=== PATIENT | male | born 1975 | race Caucasian/White ===

== ENCOUNTER 2023-03-11 12:51 | Emergency (ER) | payer BC, SELFPAY ==
--- NOTE | ~2023-03-11 | CT_ITS ---
EXAMINATION: CT abdomen pelvis w con INDICATION: Epigastric and periumbilical pain, diarrhea TECHNIQUE: Computed tomographic images of the abdomen and pelvis were obtained after the administrati on of 100 cc of Omnipaque 350 intravenous contrast. The dose-length product (DLP) was 530.49 mGy-cm. Automated exposure control and iterative reconstruction technique were employed. COMPARISON: None available FINDINGS: Minimal dependent atelectasis is present in the lung bases. The heart size is normal. There are surgical changes in the stomach. There is mild wall thickening of the gastric antrum. There is a questionable small ulcer of the gastric antrum. There is a 4 mm cyst of the right hepatic lobe. The spleen, pancreas, gallbladder, and adrenal glands are normal. The kidneys are unremarkable. No pathol ogically enlarged abdominal or pelvic lymph nodes are identified. No free intraperitoneal gas or evid ence of bowel obstruction. IMPRESSION: 1. Wall thickening of the gastric antrum with questionable small associated ulcer. Reviewed, dictated and finalized at location L. IMPRESSION: 1. Wall thickening of the gastric antrum with questionable small associated ulc er.
[2023-03-11 12:54] VITALS: BP 145/76; PULSE 78; RESP 16; TEMP 36.6; O2SAT 100
[2023-03-11 13:34] LABS: Basophils Percent Auto 0.4 % (0.2-1.2); Eosinophils Percent Auto 0.1 % (0-4.4); Hematocrit 40.3 % (42.0-52.0); Hemoglobin 13.7 g/dL (14.0-18.0); Immature Granulocyte Absolute 0.09 K/mm3 (0.00-0.031); Immature Granulocyte Percent A 0.9 % (0-0.5); Lymphocytes Percent Auto 12.2 % (18.3-44.2); Mean Corpuscular Hemoglobin 30.7 pg (26-34); Mean Corpuscular Volume 90.4 fl (80-100); Mean Platelet Volume 8.4 fl (7.4-10.4); Monocytes Absolute Auto 0.6 K/mm3 (0.1-0.6); Monocytes Percent Auto 6.1 % (2.6-8.5); Neutrophils Absolute Auto 7.9 K/mm3 (1.3-6.7); Neutrophils Percent Auto 80.3 % (45.5-73.1); Platelet Count Result 198 k/mm3 (150-375); Red Blood Count 4.46 M/mm3 (4.6-6.20); Red Cell Distribution Width 12.9 % (11.5-14.5); White Blood Count 9.8 K/mm3 (4.5-10.0)
[2023-03-11 13:41] LABS: Appearance Urine Clear (Clear); Bacteria Urine None Seen /hpf; Bilirubin Urine Negative (Negative); Blood Urine Negative (Negative); Color Urine Dark Yellow (Yellow); Glucose Urine UA Negative (Negative); Ketones Urine 1+ mg/dL (Negative); Leukocyte Esterase Ur Negative LEU/UL (Negative); Nitrate Urine Negative (Negative); Non Pathogenic Casts 0-2; Protein Urine Trace mg/dL (Negative); RBC Urine 0-2 /hpf (0-2); Specific Grav Ur 1.034 (1.001-1.035); Squamous Epithelial Cell Urine None seen /hpf (Few); Urobilinogen Urine 0.2 mg/dL (<2.0); WBC Urine 0-5 /hpf
[2023-03-11 13:42] LABS: Add Urine Microscopic? YES
[2023-03-11 13:46] VITALS: BP 136/79; O2SAT 100
[2023-03-11 13:49] LABS: Alanine Aminotransferase 21 U/L (6-50); Albumin Level 4.1 g/dL (3.5-5.1); Alkaline Phosphatase 56 U/L (38-126); Anion Gap 7 mmol/L (8-16); Aspartate Amino Transferase 25 U/L (17-59); Bilirubin,Total 0.6 mg/dL (0.2-1.3); Blood Urea Nitrogen 19 mg/dL (9-20); Calcium 8.9 mg/dL (8.4-10.2); Carbon Dioxide 26 mmol/L (22-30); Chloride 104 mmol/L (98-107); Estimated CRCL calculation 109 ml/min; Estimated Glomerular Filt Rate > 60; Glucose 93 mg/dL (65-110); Lipase 108 U/L (23-300); Potassium 3.8 mmol/L (3.4-5.0); Sodium 137 mmol/L (137-145)
[2023-03-11 14:01] VITALS: BP 132/79; O2SAT 100
--- NOTE | 2023-03-11 14:04 | ED.GENADULT ---
HPI - General Adult General Chief complaint: Nausea/Vomiting/Diarrhea Stated complaint: INT FEVERS,N/V/D Time Seen by Provider: 03/11/23 13:36 Source: patient Mode of arrival: ambulatory Limitations: no limitations History of Present Illness HPI narrative: This is a 47-year-old male who presents to the ED with chief complaint of N/V/D for the past 10 days. Patient reports that he initially was having quite a bit of nausea and vomiting but the vomiting is since resolved. Over the last several days he is having increasing episodes of diarrhea. Reports abdominal cramping only when the diarrhea comes on. Abdominal pain is relieved after bowel movements. Denies fevers, chills, syncope, chest pain, shortness of breath, cough. Denies any GI bleeding symptoms. Related Data Home Medications Medication Instructions Recorded Confirmed docusate sodium 100 mg capsule 100 mg PO DAILY 04/09/21 03/10/23 (Colace) multivitamin 1 tablet PO DAILY 04/09/21 03/10/23 ascorbic acid (vitamin C) 1,000 mg 1 g PO DAILY 10/01/21 03/10/23 tablet calcium carbonate 600 mg calcium 1,200 mg PO DAILY 10/01/21 03/10/23 (1,500 mg) tablet (Calcium) vitamin B complex (B 1 tablet PO DAILY 10/01/21 03/10/23 Complex-Vitamin B12 tablet) Allergies Allergy/AdvReac Type Severity Reaction Status Date / Time No Known Allergies Allergy Mild Verified 03/10/23 10:29 Review of Systems Review of Systems: All systems as dictated in HPI [facility] Past Medical History Medical History Dyslipidemia Essential (primary) hypertension resolved after bariatric surgery( sleeve gastrectomy) and weight loss Family history of prostate cancer Intermittent low back pain Surgical History Surgical History H/O hernia repair (~1977) congenital inguinal hernia History of sleeve gastrectomy (~02/2021) 03/21/21 Social History Social History Smoking status: Never smoker Second hand tobacco smoke exposure: No Alcohol intake: former Substance use: never Substance use type: does not use Lack of Transportation: No Lack of Food: Never True Current Housing: I Have Housing Concerned About Future Housing: No Difficulty Paying Gas/Electric Bills: No Difficulty Paying for Meds: No Currently Unemployed: No Education: Associate Degree Difficulty w/ Childcare or Family Care: No Living arrangements: with family Occupation/Education: occupation Gender identity (if verbalized by the patient): Male Agree to blood products: Yes Exam Narrative: GENERAL: Well-appearing, well-nourished, and in no acute distress. HEAD: Normocephalic, atraumatic. EYES: PERRLA and EOMI. ENT: Nares clear, no rhinorrhea or epistaxis. Mucous membranes moist. Oropharynx without tonsillar hypertrophy exudate or other lesions. NECK: Supple. No adenopathy or masses. CHEST: No respiratory distress. Clear to auscultation. No wheezes rales or rhonchi HEART: Regular rate and rhythm. No murmur heard. Normal peripheral pulses. ABDOMEN: Mild periumbilical/epigastric tenderness. Soft, otherwise nontender, nondistended, normal active bowel sounds. MSK: Normal range of motion. No edema. SKIN: Warm, dry, no rash. NEURO: Alert and oriented x3. No focal deficits. PSYCH: Normal mood and affect. Course Vital Signs Vital signs: Vital Signs Temperature 97.9 F 03/11/23 12:54 Pulse Rate 78 03/11/23 12:54 Respiratory Rate 16 03/11/23 12:54 Blood Pressure 145/76 H 03/11/23 12:54 Pulse Oximetry 100 03/11/23 12:54 Temperature 97.9 F 03/11/23 12:54 Pulse Rate 78 03/11/23 12:54 Respiratory Rate 16 03/11/23 12:54 Blood Pressure 132/79 03/11/23 14:01 Pulse Oximetry 100 03/11/23 14:01 Medical Decision Making MDM Narrative Medical decision making narrati
[2023-03-11 15:15] LABS: Influenza A QL RT-PCR Negative (Negative); Influenza B QL RT-PCR Negative (Negative); RSV RNA, RT-PCR Negative (Negative); SARS-CoV-2 RNA PCR Negative (Negative)
== END 2023-03-11 15:46 | disposition home or self-care (01) ==
PROVIDERS: Emergency Medicine; Emergency Provider Physician Assistant; PCP Family Medicine
DX: K52.9 Noninfective gastroenteritis and colitis, unspecified (principal); Z20.822 Contact with and (suspected) exposure to COVID-19; E78.5 Hyperlipidemia, unspecified; Z98.84 Bariatric surgery status
CPT/HCPCS: 36415; 74177; 80053; 81001; 83690; 85025; 87637; 99284; Q9967

== ENCOUNTER 2023-04-30 02:27 | Day surgery (SDC) | payer BC, SELFPAY ==
[2023-04-19 08:45] VITALS: BMI 26.3
--- NOTE | 2023-04-28 10:26 | SUR.PREOP ---
Patient called regarding upcoming procedure. Reviewed preop instructions, appointment times, and procedure prep.
[2023-04-30 11:43] VITALS: BP 121/72; PULSE 66; RESP 20; TEMP 36.3; O2SAT 100; BMI 25.6
[2023-04-30] MEDS: LACTATED RINGERS 1,000 ML 150 ML IV CONT (11:58)
--- NOTE | 2023-04-30 12:18 | WPDANESEPPF ---
Anes - Initial Pre Proc Eval Procedure: Operation Date: 04/30/23 13:00 Proposed Procedures p Esophagogastroduodenoscopy & Screening Colonoscopy - Leon Huff MD Date/Time: 04/30/23 12:18 Surgeon: Leon Huff MD Pre Op Diagnosis: Gastric Ulcer,Neoplasm screening Patient Data Age: 47 Gender: M Height: 1.91 m Weight: 93 kg Last Vital Signs Temp 97.3 F L 04/30/23 11:43 Pulse 66 04/30/23 11:43 Resp 20 04/30/23 11:43 BP 121/72 04/30/23 11:43 Pulse Ox 100 04/30/23 11:43 O2 Del Method Room Air 04/30/23 11:43 Allergies Allergy/AdvReac Type Severity Reaction Status Date / Time No Known Allergies Allergy Mild Verified 04/30/23 11:43 Home Medications Medication Instructions Recorded Confirmed Type docusate sodium 100 mg capsule 100 mg PO DAILY 04/09/21 04/30/23 History (Colace) multivitamin 1 tablet PO DAILY 04/09/21 04/30/23 History ascorbic acid (vitamin C) 1,000 mg 1 g PO DAILY 10/01/21 04/30/23 History tablet calcium carbonate 600 mg calcium 1,200 mg PO DAILY 10/01/21 04/30/23 History (1,500 mg) tablet (Calcium) vitamin B complex (B 1 tablet PO DAILY 10/01/21 04/30/23 History Complex-Vitamin B12 tablet) omeprazole 40 mg capsule,delayed 40 mg PO DAILY #30 caps 03/11/23 04/30/23 Rx release Patient hx anesthesia problems: none Family hx anesthesia problems: none Results Review: All pre-operative results and documents have been reviewed as part of the pre-operative evaluation. [facility] Past Medical History Medical History (Updated 03/29/23 @ 15:38 by Gauri Yeh APRN) Abnormal abdominal CT scan Dyslipidemia Essential (primary) hypertension resolved after bariatric surgery( sleeve gastrectomy) and weight loss Family history of prostate cancer Gastric ulcer Intermittent low back pain Screening for colon cancer Viral gastroenteritis Surgical History Surgical History H/O hernia repair (~1977) congenital inguinal hernia History of sleeve gastrectomy (~02/2021) 03/21/21 Social History Social History Smoking status: Never smoker Second hand tobacco smoke exposure: No Alcohol intake: current Alcohol use details: 1 drink monthly Substance use: never Substance use type: does not use Lack of Transportation: No Lack of Food: Never True Current Housing: I Have Housing Concerned About Future Housing: No Difficulty Paying Gas/Electric Bills: No Difficulty Paying for Meds: No Currently Unemployed: No Education: Associate Degree Difficulty w/ Childcare or Family Care: No Living arrangements: with family Occupation/Education: occupation Gender identity (if verbalized by the patient): Male Spiritual care concerns: No Agree to blood products: Yes Anes - Eval Final PreProcedure Day of Procedure 04/30/23 12:18 Patient weight: normal Heart: regular rate and rhythm Lungs: clear to auscultation Airway: Mallampati scale class II Neurological: alert and oriented Last oral intake: >/= 8 hours ASA classification: II Emergent: no Anesthetic plan: proceed Anesthesia type and monitoring: general GIVS and standard monitoring Results Review: All pre-operative results and documents have been reviewed as part of the pre-operative evaluation. Informed Consent: The patient's anesthetic plan and its attendant risks and benefits were discussed with the patient/family/POA. Questions were solicited and answers provided to the satisfaction of the patient/family/POA.
--- NOTE | 2023-04-30 12:35 | PM.HPGS ---
History of Present Illness History of Present Illness Consent: Risks, benefits, and alternatives have been discussed and questions answered. Patient agrees to proceed with procedure. Chief complaint: Gastric Ulcer,Neoplasm screening Narrative: Ruben Bond is a 47 year old male here for first screening colonoscopy, also EGD. He has history of sleeve gastrectomy 02/2021 and lost over 100 lbs and inguinal hernia repair.? Had EGD prior to gastric sleeve surgery and was normal per patient. He presented to [facility] ER few weeks ago with vomiting, diarrhea, and fevers.? he had a CT scan of the abdomen and pelvis that showed wall thickening of the gastric antrum with questionable small associated ulcer.? treated with ppi and now asymptomatic.? Review of Systems Constitutional: Constitutional: Denies headache(s) and Denies weakness Eyes: Eyes: Denies blurry vision ENT: Reports Normal hearing present, Denies headache(s) and Denies neck pain Cardiovascular: Cardiovascular: Denies chest pain and Denies dyspnea Respiratory: Respiratory: Denies dyspnea Gastrointestinal: Gastrointestinal: Reports no additional gastrointestinal complaints Genitourinary: Genitourinary: Denies dysuria Musculoskeletal: Musculoskeletal: Denies neck pain Integumentary/Breasts: Skin/Breast: Denies dry skin Neurologic: Reports Normal hearing present, Denies headache(s) and Denies weakness Psychiatric: Psychiatric: Denies anxiety Endocrine: Endocrine: Denies change in body appearance Hematologic/Lymphatic: Hematologic/Lymphatic: Denies easy bleeding Allergic/Immunologic: Allergic/Immunologic: Denies urticaria PMFSH Past Medical History Medical History (Updated 03/29/23 @ 15:38 by Gauri Yeh, [employer]) Abnormal abdominal CT scan Dyslipidemia Essential (primary) hypertension resolved after bariatric surgery( sleeve gastrectomy) and weight loss Family history of prostate cancer Gastric ulcer Intermittent low back pain Screening for colon cancer Viral gastroenteritis Surgical History Surgical History H/O hernia repair (~1977) congenital inguinal hernia History of sleeve gastrectomy (~02/2021) 03/21/21 Social History Social History Smoking status: Never smoker Second hand tobacco smoke exposure: No Alcohol intake: current Alcohol use details: 1 drink monthly Substance use: never Substance use type: does not use Lack of Transportation: No Lack of Food: Never True Current Housing: I Have Housing Concerned About Future Housing: No Difficulty Paying Gas/Electric Bills: No Difficulty Paying for Meds: No Currently Unemployed: No Education: Associate Degree Difficulty w/ Childcare or Family Care: No Living arrangements: with family Occupation/Education: occupation Gender identity (if verbalized by the patient): Male Spiritual care concerns: No Agree to blood products: Yes Meds Home Medications and Allergies Home Medications Medication Instructions Recorded Confirmed Type docusate sodium 100 mg capsule 100 mg PO DAILY 04/09/21 04/30/23 History (Colace) multivitamin 1 tablet PO DAILY 04/09/21 04/30/23 History ascorbic acid (vitamin C) 1,000 mg 1 g PO DAILY 10/01/21 04/30/23 History tablet calcium carbonate 600 mg calcium 1,200 mg PO DAILY 10/01/21 04/30/23 History (1,500 mg) tablet (Calcium) vitamin B complex (B 1 tablet PO DAILY 10/01/21 04/30/23 History Complex-Vitamin B12 tablet) omeprazole 40 mg capsule,delayed 40 mg PO DAILY #30 caps 03/11/23 04/30/23 Rx release Allergies Allergy/AdvReac Type Severity Reaction Status Date / Time No Known Allergies Allergy Mild Verified 04/30/23 11:43 Vital Signs Vital Signs - 24 hr 04/30/23 11:43 Temperature 97.3 F L Pulse Rate 66 Respiratory Rate 20 Blood Pressure 121/72 Pulse Oximetry 100
--- NOTE | 2023-04-30 12:45 | SUR.OPER ---
EGD start 1239 end 1243, Colonoscopy start 124
[2023-04-30 13:03] VITALS: BP 111/75; PULSE 69; RESP 12; O2SAT 100
[2023-04-30 13:13] VITALS: BP 121/90; PULSE 60; RESP 18; O2SAT 100
[2023-04-30 13:23] VITALS: BP 120/83; PULSE 60; RESP 15; O2SAT 100
== END 2023-04-30 13:26 | disposition home or self-care (01) ==
PROVIDERS: PCP Family Medicine; Visit Provider Internal Medicine Gastroenterology
PROC: 0DJ08ZZ Inspection of Upper Intestinal Tract, Via Natural or Artificial Opening Endoscopic (ICD-10-PCS; CPT 43235; principal; 2023-04-30 13:00)
DX: Z12.11 Encounter for screening for malignant neoplasm of colon (principal); R93.5 Abnormal findings on diagnostic imaging of other abdominal regions, including retroperitoneum; Z90.3 Acquired absence of stomach [part of]; K44.9 Diaphragmatic hernia without obstruction or gangrene; E78.5 Hyperlipidemia, unspecified; I10 Essential (primary) hypertension
CPT/HCPCS: 43239; 45378; 88305; J2704; J7120

== ENCOUNTER 2024-07-22 22:11 | Emergency (ER) | payer BC, SELFPAY ==
--- NOTE | ~2024-07-22 | XR_ITS ---
EXAMINATION: XR ankle RT min 3V DATE: 07/23/2024 01:59 INDICATION: Right ankle infection. TECHNIQUE: 3 views of right ankle were obtained. COMPARISON: None. FINDINGS: Alignment is normal. No fracture. Joint spaces are normal. There is an enthesophyte of post erior aspect of calcaneal tuberosity. Ankle soft tissue swelling is noted. IMPRESSION: 1. No fracture. Reviewed, dictated and finalized at location A. CLERK IMPRESSION: 1. No fracture.
--- OUTSIDE RECORDS SUMMARY | 2024-07-22 22:13 | XMS_ITS | Referral Summary ---
Author Organization [facility] Address [address] [place] [address] Phone Care Team Providers Care Computer Programmer Name Role Phone Miscellaneous, Not In File Primary Care Provider Unavailable Zeb Garcia MD Unavailable [phone] Allergies No known active allergies Medications hydroCHLOROthia zide (HYDRODIURIL) 25 mg tablet 1 Active albuterol HFA (ProAir HFA) 90 mcg/actuation inhalerIndicati ons:Acute viral bronchitis Inhale 2 puffs every 4 (four) hours as needed for wheezing or shortness of breath 8.5 g 1 Active Active Problems No known active problems Social History Tobacco Use Types Packs/Day Years Used Date Smoking Tobacco: Never Personal Safety Answer Date Recorded Getting School Help Needed Not on file 08/13 Sex and Gender Information Value Date Recorded Sex Assigned at Not on file Legal Sex Male 12:02 PM [employer] Gender Identity Not on file Sexual Orientation Not on file Last Filed Vital Signs Vital Sign Reading Time Taken Comments Blood Pressure 132/84 11/04/2020 9:35 AM CDT Pulse 102 11/04/2020 9:35 AM CDT Temperature 36.2 C (97.1 F) 11/04/2020 9:35 AM CDT Respiratory Rate 16 11/04/2020 9:35 AM CDT Oxygen Saturation 96% 11/04/2020 9:35 AM CDT Inhaled Oxygen Concentration - - Weight 155.1 kg (342 lb) 11/04/2020 9:35 AM CDT Height 190.5 cm (6' 3 ) 11/04/2020 9:35 AM CDT Body Mass Index 42.75 11/04/2020 9:35 AM CDT Plan of Treatment Not on file Insurance [employer] Care Teams Computer Programmer Relationship Specialty Start Date End Date Miscellaneous, Not In File PCP - General 07/02/23 Zeb Garcia MD Family Practice 07/02/23
--- OUTSIDE RECORDS SUMMARY | 2024-07-22 22:13 | XMS_ITS ---
Author Organization [facility] Address [address] [facility] [address] [place] [address] Care Team Providers Care Foxing Painter Name Role Phone Fede Pena DO Unavailable [phone] Encounters Encounter Location Date Provider Diagnosis [facility] [address] [facility] [address] [place] [address] 02/09/2024 Fede Pena Vitamin deficiency, unspecified E56.9 ; Other specified personal risk factors, not elsewhere classified Z91.89 ; S/P bariatric surgery Z98.84 and Postoperative intestinal malabsorption K91.2 Assessments Encounter Date Diagnosis (ICD Code) Assessment Notes Treatment Notes Treatment Clinical Notes Section Notes 02/09/2024 Vitamin deficiency, unspecified (ICD-10 - E56.9) 02/09/2024 Other specified personal risk factors, not elsewhere classified (ICD-10 - Z91.89) 02/09/2024 S/P bariatric surgery (ICD-10 - Z98.84) 02/09/2024 Postoperative intestinal malabsorption (ICD-10 - K91.2) Plan Of Treatment Pending Test Test Name Order Date IRON, TIBC AND FERRITIN PANEL (5616) 03/2024 COMPREHENSIVE METABOLIC PANEL (54055) CBC (H/H, RBC, INDICES, WBC, PLT) (1759) 02/09/2024 HEMOGLOBIN A1c (496) 02/09/2024 VITAMIN B12/FOLATE, SERUM PANEL (7065) 0 02/09/2024 TSH (899) 02/09/2024 VITAMIN D,25-OH,TOTAL,IA (90922) 024 ZINC (945) 02/09/2024 VITAMIN B1 (THIAMINE), SERUM/PLASMA, LC/ MS/MS (87337) 02/09/2024 Next Appt Details Provider Name:Fede hansen, 01/10/2025 01:15:00 PM, [address], [address], Progress Notes * MICHAEL FUNGDOB:1975 (48 yo Other)Acc No.[id number]:02/09/2024 Patient: MICHAEL YOUSSEF :1975 A ge:48 Y S ex:Unknown Address:[address] [place] [address] [place], [place], [place] [address] Subjective: * Chief Complaints: * * Medical History: * Surgical History: * Hospitalization/Major Diagno stic Procedure: * Medications: Objective: * Vitals: Past Vitals:* 01/12/2024 Wt:205, BMI:25.62, BP:120/76 * Physical Examination: Assessment: * Assessment: 1. V itamin deficiency, unspecified - E56.9 2 . O ther specified personal risk factors, not elsewhere classified - Z91.89 3 . S /P bariatric surgery - Z98.84 4 . P ostoperative intestinal malabsorption - K91.2 Plan: * Treatment: 2. O ther specified personal risk factors, not elsewhere classified L AB: IRON, TIBC AND FERRITIN PANEL (5616) L AB: COMPREHENSIVE METABOLIC PANEL (24380) L AB: CBC (H/H, RBC, INDICES, WBC, PLT) (1759) L AB: HEMOGLOBIN A1c (496) L AB: VITAMIN B12/FOLATE, SERUM PANEL (7065) L AB: TSH (899) L AB: VITAMIN D,25-OH,TOTAL,IA (07475) L AB: ZINC (945) L AB: VITAMIN B1 (THIAMINE), SERUM/PLASMA, LC/MS/MS (06733) 3. S /P bariatric surgery L AB: IRON, TIBC AND FERRITIN PANEL (5616) L AB: COMPREHENSIVE METABOLIC PANEL (13650) L AB: CBC (H/H, RBC, INDICES, WBC, PLT) (1759) L AB: HEMOGLOBIN A1c (496) L AB: VITAMIN B12/FOLATE, SERUM PANEL (7065) L AB: TSH (899) L AB: VITAMIN D,25-OH,TOTAL,IA (75876) L AB: ZINC (945) L AB: VITAMIN B1 (THIAMINE), SERUM/PLASMA, LC/MS/MS (01959) 4. P ostoperative intestinal malabsorption L AB: IRON, TIBC AND FERRITIN PANEL (5616) L AB: COMPREHENSIVE METABOLIC PANEL (70595) L AB: CBC (H/H, RBC, INDICES, WBC, PLT) (1759) L AB: HEMOGLOBIN A1c (496) L AB: VITAMIN B12/FOLATE, SERUM PANEL (7065) L AB: TSH (899) L AB: VITAMIN D,25-OH,TOTAL,IA (80367) L AB: ZINC (945) L AB: VITAMIN B1 (THIAMINE), SERUM/PLASMA, LC/MS/MS (78604) * Procedure Codes: * true * Date: Generated for Frieda abreu/Brian/Chrisitting on: 0 07/22/2024 10:13 PM PROFILE SAW SETUP OPERATOR
--- OUTSIDE RECORDS SUMMARY | 2024-07-22 22:13 | XMS_ITS | Clinical Summary ---
Author Organization [facility] Address [address] [place] [address] Phone Care Team Providers Care Reinforcing Rod Layer Name Role Phone Unavailable Primary Care Provider Unavailabl e Allergies No known active allergies Medications multivitamin (DAILY-DEBORAH) tablet Take 1 Tablet by mouth daily. Active ascorbic acid, vitamin C, (VITAMIN C) 1,000 mg Tablet Take 1,000 mg by mouth daily. Active cyanocobalamin 1,000 mcg Tablet Take 1,000 mcg by mouth daily. Active VITAMIN B COMPLEX ORAL Take by mouth. Active triamcinolone acetonide (KENALOG) 0.5 % Cream 02/26/2022 Active ergocalciferol, vitamin D2, (VITAMIN D ORAL) Take by mouth. Active Active Problems Problem Noted Date Diagnosed Date H/o ELISEO (obstructive sleep apnea) 09/24/2022 S/P laparoscopic sleeve gastrectomy 09/24/2022 Gastric reflux 09/24/2022 H/o Hypertension 02/13/2021 Resolved Problems Problem Noted Date Diagnosed Date Resolved Date Morbid obesity with body mas s index of 40.0-49.9 03/21/2021 05/29/2021 Immunizations Immunization Administration Dates Next Due (VeriTainer)(12 YR UP) COVID-19 VACCINE - EMERGENCY USE AUTHORIZATION, MRNA, [id number](PF) 30 MCG/0.3 ML IM SUSP 09/04/2020,08/16/2020 Social History Tobacco Use Types Packs/Day Years Used Date Smoking Tobacco: Never Smokeless Tobacco: Never Tobacco Cessation:Counseling Given: Not Answered Alcohol Use Standard Drinks/Week Comments Yes 0 (1 standard drink = 0.6 oz pur e alcohol) rarely Sex and Gender Information Value Date Recorded Sex Assigned at Not on file Legal Sex Male 3:35 PM CDT Gender Identity Not on file Sexual Orientation Not on file Last Filed Vital Signs Vital Sign Reading Time Taken Comments Blood Pressure 124/74 03/26/2022 3:50 PM CDT Pulse 74 09/18/2021 3:11 PM CDT Temperature 37.4 C (99.3 F) 03/22/2021 4:57 PM CDT Respiratory Rate 14 03/22/2021 4:57 PM CDT Oxygen Saturation 94% 03/22/2021 4:57 PM CDT Inhaled Oxygen Concentration - - Weight 96.7 kg (213 lb 3.2 oz) 09/24/2022 2:10 P M CDT Height 190.5 cm (6' 3 ) 09/24/2022 2:10 PM CDT Body Mass Index 26.65 09/24/2022 2:10 PM CDT Plan of Treatment Health Maintenance Due Date Last Done Comments DTAP/TDAP/TD VACCINES (1 - Tdap) 1996 HEPATITIS B VACCINES (1 of 3 - 19+ 3-dose series) 1996 COLORECTAL SCREENING 2022 Colorectal Cancer Screening 2022 FIT-DNA Q 3 years 2022 FIT/FOBT Q 1 year 2022 Flex Sig/CT Colonography Q 5 years 2022 INFLUENZA VACCINE (#1) 2023 03/31/2021 COVID-19 Vaccine (3 - 2023-2 5 season) 2024 09/04/2020, 08/16/2020 HPV VACCINES Aged Out No longer eligi ble based on patient's age to complete this topic PNEUMOCOCCAL VACCINE 0-64 YEARS Aged Out No longer eligible b ased on patient's age to complete this topic Medical Devices Implanted Type Area Disability Specialist Device Identifier Shelf Expiration Date Model / Serial / Lot Hemostat Surg Snow 2x4in 2081 - [id number] Implanted:Qt y: 1 on 03/21/2021 by Fede Pena DO at [facility] Hemostatic N/A: Abdomen [employer] [id number] 11/27/2022 208 / / [id number] Insurance BS BLUE ACCESS CHOICE RX [employer] Commercial RX [employer] (INTERNAL) [facility] Plans Advance Directives For more information, please contact: [phone] * Full Code (Latest Code Status on File) Date Activated Date Inactivated Comments 03/21/2021 5:56 PM 03/22/2021 8:39 PM * Full Code Date Activated Date Inactivated Comments 03/21/2021 1:59 PM 03/21/2021 5:56 PM * Full Code Date Activated Date Inactivated Comments 03/21/2021 11:44 AM 03/21/2021 1:59 PM
--- OUTSIDE RECORDS SUMMARY | 2024-07-22 22:13 | XMS_ITS ---
Author Organization [facility] Address [address] [place] [address] Care Team Providers Care Development Architect Name Role Phone Fede Pena DO Unavailable [phone] Results Component Value Reference Range Notes IRON, TIBC AND FERRITIN PANE L (5616) Reviewed date:03/13/2024 10:55:27 AM Interpretation: Performing Lab:[facility] Andresexa10101 [address] Rivera[address] Fany Carreon MD Notes/Report: NON-FASTING; NON-FASTING; NON-FASTING; NON-FASTING; NON-FAST FASTING:NO AN UPDATE OR CORRECTION HAS BEEN MADE TO NAME,SEX FASTING: NO IRON, TOTAL 94 50-180 mcg/dL IRON BINDING CAPACITY 323 250-425 mcg/dL (azucena c) % SATURATION 29 20-48 % (calc) FERRITIN 23 38-380 ng/mL COMPREHENSIVE METABOLIC PANE L (59369) Reviewed date:03/08/2024 11:46:10 AM Interpretation: Performing Lab:Mike SERRANOexa10101 Fifi RiveraaKS[address] Fany Carreon MD Notes/Report: NON-FASTING; NON-FASTING; NON-FASTING; NON-FASTING; NON-FAST FASTING:NO AN UPDATE OR CORRECTION HAS BEEN MADE TO NAME,SEX FASTING: NO GLUCOSE 90 65-139 mg/dL Non-fasting reference interval UREA NITROGEN (BUN) 17 7-25 mg/dL CREATININE 0.93 0.60-1.29 mg/dL EGFR 103 > OR = 60 mL/min/1.73m2 BUN/CREATININE RATIO SEE NOTE: 6-22 (calc) Not Reported: BUN and Creatinine are within reference range. SODIUM 140 135-146 mmol/L POTASSIUM 4.1 3.5-5.3 mmol/L CHLORIDE 105 98-110 mmol/L CARBON DIOXIDE 29 20-32 mmol/L CALCIUM 9.5 8.6-10.3 mg/dL PROTEIN, TOTAL 6.1 6.1-8.1 g/dL ALBUMIN 4.2 3.6-5.1 g/dL GLOBULIN 1.9 1.9-3.7 g/dL (calc) ALBUMIN/GLOBULIN RATIO 2.2 1.0-2.5 (calc) BILIRUBIN, TOTAL 0.5 0.2-1.2 mg/dL ALKALINE PHOSPHATASE 47 36-130 U/L AST 20 10-40 U/L ALT 17 9-46 U/L CBC (H/H, RBC, INDICES, WBC, PLT) (1759) Reviewed date:03/08/2024 11:46:10 AM Interpretation: Performing Lab:[facility]-Ejmbyo40657 Fifi RiveraaKS[address] Fany Carreon MD Notes/Report: NON-FASTING; NON-FASTING; NON-FASTING; NON-FASTING; NON-FAST FASTING:NO AN UPDATE OR CORRECTION HAS BEEN MADE TO NAME,SEX FASTING: NO WHITE BLOOD CELL COUNT 4.7 3.8-10.8 Thousand/ uL RED BLOOD CELL COUNT 4.42 4.20-5.80 Million/uL HEMOGLOBIN 14.2 13.2-17.1 g/dL HEMATOCRIT 41.9 38.5-50.0 % MCV 94.8 80.0-100.0 fL MCH 32.1 27.0-33.0 pg MCHC 33.9 32.0-36.0 g/dL RDW 11.6 11.0-15.0 % PLATELET COUNT 173 140-400 Thousand/uL MPV 9.7 7.5-12.5 fL HEMOGLOBIN A1c (496) Reviewed date:03/08/2024 11:46:10 AM Interpretation: Performing Lab:[facility] IildolxQD[address] Fany Carreon Notes/Report: NON-FASTING; NON-FASTING; NON-FASTING; NON-FASTING; NON-FAST FASTING:NO AN UPDATE OR CORRECTION HAS BEEN MADE TO NAME,SEX FASTING: NO HEMOGLOBIN A1c 5.2 <5.7 % of total Hgb For the purpose of screening for the presence of diabetes: <5.7% Consistent with the absence of diabetes 5.7-6.4% Consistent with increased risk for diabetes (prediabetes) > or =6.5% Consistent with diabetes This assay result is consistent with a decreased risk of diabetes. Currently, no consensus exists regarding use of hemoglobin A1c for diagnosis of diabetes in children. According to [place] Diabetes Association (ADA) guidelines, hemoglobin A1c <7.0% represents optimal control in non- diabetic patients. Different metrics may apply to specific patient populations. Standards of Medical Care in Diabetes(ADA). This test was performed on the Asiya vineet c503 platform. Effective 08/16/23, a change in test platforms from the [place] Otolaryngology Rep to the Asiya vineet c503 may have shifted HbA1c results compared to historical results. Based on laboratory validation testing conducted at [facility] the Asiya platform relative to the [place] platform had an average increase in HbA1c value of < or = 0.3%. This difference is within accepted variability established by the National Glycohemoglobin Standardization Program. Note that not all individuals will have had a shift in their results and direct comparisons between historical and current results for testing conducted on different platforms is not recommended. VITAMIN B12/FOLATE, SERUM PA JOSEPH (7065) Reviewed date:03/08/2024 11:46:10 AM Interpretation: Performing Lab:[facility] Reza-Zdeoro81386 [address], WmrwgkVR[address] Fany Carreon MD Notes/Report: NON-FASTING; NON-FASTING; NON-FASTING; NON-FASTING; NON-FAST FASTING:NO AN UPDATE OR CORRECTION HAS BEEN MADE TO NAME,SEX FASTING: NO VITAMIN B12 492 469-0302 pg/mL FOLATE, SERUM >24.0 Reference Range Low: <3.4 Borderline: 3.4-5.4 Normal: >5.4 TSH (899) Reviewed date:03/08/2024 11:46:10 AM Interpretation: Performing Lab:[facility]-Bqhfer66722 [address], MjouyhTO[address] Fany Carreon MD Notes/Report: NON-FASTING; NON-FASTING; NON-FASTING; NON-FASTING; NON-FAST FASTING:NO AN UPDATE OR CORRECTION HAS BEEN MADE TO NAME,SEX FASTING: NO TSH 1.08 0.40-4.50 mIU/L VITAMIN D,25-OH,TOTAL,IA (17 306) Reviewed date:03/08/2024 11:46:10 AM Interpretation: Performing Lab:[facility]-Pmryiq22506 Yordy [facility], LuzrovUG[address] Fany Carreon MD Notes/Report: NON-FASTING; NON-FASTING; NON-FASTING; NON-FASTING; NON-FAST FASTING:NO AN UPDATE OR CORRECTION HAS BEEN MADE TO NAME,SEX FASTING: NO VITAMIN D,25-OH,TOTAL,IA 47 30-100 ng/mL Vitamin D Status 25-OH Vitamin D: Deficiency: <20 ng/mL Insufficiency: 20 - 29 ng/mL Optimal: > or = 30 ng/mL For 25-OH Vitamin D testing on patients on D2-supplementation and patients for whom quantitation of D2 and D3 fractions is required, the QuestAssureD(TM) 25-OH VIT D, (D2,D3), LC/MS/MS is recommended: order code 76830 (patients >2yrs). See Note 1 Note 1 For additional information, please refer to http://education.bigclix.com/faq/HUQ660 (This link is being provided for informational/ educational purposes only.) ZINC (945) Reviewed date:03/08/2024 11:46:10 AM Interpretation: Performing Lab:Mike MARCOS-Armando Lnjw9459 [facility], Armando BrownTgcgWG[address] Alok Charles Notes/Report: NON-FASTING; NON-FASTING; NON-FASTING; NON-FASTING; NON-FAST FASTING:NO AN UPDATE OR CORRECTION HAS BEEN MADE TO NAME,SEX FASTING: NO ZINC 74 60-130 mcg/dL This test was developed and its analytical performance characteristics have been determined by [facility]. It has not been cleared or approved by the FDA. This assay has been validated pursuant to the CLIA regulations and is used for clinical purposes. VITAMIN B1 (THIAMINE), SERUM /PLASMA, LC/MS/MS (98007) Reviewed date:03/13/2024 10:55:37 AM Interpretation: Performing Lab:[facility], [facility]-Ok[address]jekl[address] [address], [address], JugsptwjupRW[address] Sterling Estrada MD,PhD Notes/Report: NON-FASTING; NON-FASTING; NON-FASTING; NON-FASTING; NON-FAST FASTING:NO AN UPDATE OR CORRECTION HAS BEEN MADE TO NAME,SEX FASTING: NO VITAMIN B1 (THIAMINE), SERUM/PLASMA, LC/MS/MS 102 8-30 nmol/L (Note) Vitamin supplementation within 24 hours prior to blood draw may affect the accuracy of the results. This test was developed and its analytical performance characteristics have been determined by [facility]. It has not been cleared or approved by FDA. This assay has been validated pursuant to the CLIA regulations and is used for clinical purposes. [facility] med fusion [address] [address],[address] [facility] [address] Sterling Estrada MD, PhD Encounters Encounter Location Date Provider Diagnosis [facility] [address] [place] [address] 02/09/2024 Fede Pena Vitamin deficiency, unspecified E56.9 [...] malabsorption (ICD-10 - K91.2) Plan Of Treatment Next Appt Details Provider Name:Fede Cisneros Luke hansen, 01/10/2025 01:15:00 PM, [address] , [address], [place], [address], Progress Notes * DONNA FUNGB:1975 (48 yo Other)Acc No.[id number]:02/09/2024 Patient: MICHAEL YOUSSEF :1975 A ge:48 Y S ex:Unknown Address: [address], [facility] [address] Subjective: * Chief Complaints: * * Medical [...] PANEL (5616) L AB: COMPREHENSIVE METABOLIC PANEL (62461) L AB: CBC (H/H, RBC, INDICES, WBC, PLT) (1759) L AB: HEMOGLOBIN A1c (496) L AB: VITAMIN B12/FOLATE, SERUM PANEL (7065) L AB: TSH (899) L AB: VITAMIN D,25-OH,TOTAL,IA (43976) L AB: ZINC (945) L AB: VITAMIN B1 (THIAMINE), SERUM/PLASMA, LC/MS/MS (02740) 3. S /P bariatric surgery L AB: IRON, TIBC AND FERRITIN PANEL (5616) L AB: COMPREHENSIVE METABOLIC PANEL (26021) L AB: CBC (H/H, RBC, INDICES, WBC, PLT) (1759) L AB: HEMOGLOBIN A1c (496) L AB: VITAMIN B12/FOLATE, SERUM PANEL (7065) L AB: TSH (899) L AB: VITAMIN D,25-OH,TOTAL,IA (16705) L AB: ZINC (945) L AB: VITAMIN B1 (THIAMINE), SERUM/PLASMA, LC/MS/MS (73266) 4. P ostoperative intestinal malabsorption L AB: IRON, TIBC AND FERRITIN PANEL (5616) L AB: COMPREHENSIVE METABOLIC PANEL (06964) L AB: CBC (H/H, RBC, INDICES, WBC, PLT) (1759) L AB: HEMOGLOBIN A1c (496) L AB: VITAMIN B12/FOLATE, SERUM PANEL (7065) L AB: TSH (899) L AB: VITAMIN D,25-OH,TOTAL,IA (28947) L AB: ZINC (945) L AB: VITAMIN B1 (THIAMINE), SERUM/PLASMA, LC/MS/MS (47395) * Procedure Codes: * true * Date: Generated for Frieda abreu/Brian/Veronica on: 0 07/22/2024 10:13 PM VEHICLE SERVICE ATTENDANT
--- OUTSIDE RECORDS SUMMARY | 2024-07-22 22:13 | XMS_ITS ---
Author Organization [facility] Address [address] [facility] [address] [place] [address] Care Team Providers Care Orthotic/Prosthetic Practitioner Name Role Phone Fede Pena DO Unavailable [phone] REASON FOR VISIT Lab results Encounters Encounter Location Date Provider Diagnosis [facility] [address] [place] [address] 02/15/2024 Fede Pena Plan Of Treatment Next Appt Details Provider Name:Fede hansen, 01/10/2025 01:15:00 PM, [address], [place], [address], Progress Notes * MICHAEL FUNGDOB:1975 (48 yo Other)Acc No.[id number]:02/15/2024 Patient: MICHAEL YOUSSEF :1975 A ge:48 Y S ex:Unknown Address:[address] [place], [address] * true * Date: Generated for Brookei ng/Fasumayag/eTransmitting on: 0 07/22/2024 10:13 PM ROCKET ASSEMBLY OPERATOR
--- OUTSIDE RECORDS SUMMARY | 2024-07-22 22:13 | XMS_ITS | Clinical Summary ---
Author Organization [facility] Address [address] [place] [address] Phone Care Team Providers Care Candy Dipper Hand Name Role Phone Miscellaneous, Not In File Primary Care Provider Unavailable Zeb Garcia MD Unavailable Allergies No known active allergies Medications hydroCHLOROthia zide (HYDRODIURIL) 25 mg tablet 1 Active albuterol HFA (ProAir HFA) 90 mcg/actuation inhalerIndicati ons:Acute viral bronchitis Inhale 2 puffs every 4 (four) hours as needed for wheezing or shortness of breath 8.5 g 1 Active Active Problems No known active problems Surgical History Surgery Date Site/Laterality Comments NO PAST SURGERIES Medical History Medical History Date Comments Hypertension Family History Medical History Relation Name Comments Diabetes Mother Heart disease Mother Relation Name Status Comments Mother Social History Tobacco Use Types Packs/Day Years Used Date Smoking Tobacco: Never Personal Safety Answer Date Recorded Getting School Help Needed Not on file 08/13 Sex and Gender Information Value Date Recorded Sex Assigned at Not on file 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 Gender Identity Not on file Sexual Orientation Not on file Obstetrics History Last Filed Vital Signs Vital Sign Reading [...] 11/04/2020 9:35 AM CDT Plan of Treatment Health Maintenance Due Date Last Done Comments Colon Cancer Screening-Colonoscopy 1975 Depression Screening 1975 Hepatitis C Screening 1975 DTaP/Tdap/Td Vaccine (1 - Tdap) 1988 Hepatitis B Screening 08/26/1995 Regular Well Visit/Exam 18-64 08/26/1995 Influenza Vaccine (#1) 2024 03/08/2020 HPV Vaccines Aged Out No longer eligi ble based on patient's age to complete this topic Pneumococcal vaccine <65 Aged Out No longer eligible based on patient's age to complete this topic Insurance [email or web address] [address] Care Teams Candy Dipper Hand Relationship Specialty Start Date End Date Miscellaneous, Not In File PCP - General 07/02/23 Zeb Garcia MD Family Practice 07/02/23
--- OUTSIDE RECORDS SUMMARY | 2024-07-22 22:13 | XMS_ITS | Patient Health Record ---
Author Organization [facility] Loss Address [address] [place] [address] Care Team Providers Care Stabilizing Machine Operator Name Role Phone Fede Pena DO Unavailable [phone] Migration, Provider Unavailable Unavailable Allergies No Known Allergies Results Component Value Reference Range Notes IRON, TIBC AND FERRITIN PANE L (5616) Reviewed date:03/13/2024 10:55:27 AM Interpretation: Performing Lab:Mike SERRANO-Ujlxbd96452 [address] Rivera[address] Fany Carreon MD Notes/Report: NON-FASTING; NON-FASTING; NON-FASTING; NON-FASTING; NON-FAST FASTING:NO AN UPDATE OR CORRECTION HAS BEEN MADE TO NAME,SEX FASTING: NO IRON, TOTAL 94 50-180 mcg/dL IRON BINDING CAPACITY 323 250-425 mcg/dL (azucena c) % SATURATION 29 20-48 % (calc) FERRITIN 23 38-380 ng/mL COMPREHENSIVE METABOLIC PANE L (32885) Reviewed date:03/08/2024 11:46:10 AM Interpretation: Performing Lab:Mike SERRANOexa10101 Matt RiveraPvlfvpJH[address] Fany Carreon MD Notes/Report: NON-FASTING; NON-FASTING; NON-FASTING; [...] Reviewed date:03/08/2024 11:46:10 AM Interpretation: Performing Lab:[facility]-Cbkjzf45681 Fifi RiveraaKS[address] Fany Carreon MD Notes/Report: NON-FASTING; [...] Reviewed date:03/08/2024 11:46:10 AM Interpretation: Performing Lab:GARRETT [facility] Hospital[facility]hkvv[address] XhnczxzPZ[address] Fany Carreon Notes/Report: NON-FASTING; NON-FASTING; NON-FASTING; NON-FASTING; [...] diagnosis of diabetes in children. According to [place] Diabetes Association (ADA) guidelines, hemoglobin A1c <7.0% represents optimal control in non- diabetic patients. Different metrics may apply to specific patient populations. Standards of Medical Care in Diabetes(ADA). This test was performed on the Asiya vineet c503 platform. Effective 08/16/23, a change in test platforms from the [place] Personal Computer Network Engineer to the Asiya vineet c503 may have shifted HbA1c results compared to historical results. Based on laboratory validation testing conducted at [facility] [employer], the Asiya platform relative to the [place] [...] Reviewed date:03/08/2024 11:46:10 AM Interpretation: Performing Lab:Z[facility]-Unzjqh37961 [address], SqiudeQO[address] Fany Carreon MD Notes/Report: NON-FASTING; NON-FASTING; NON-FASTING; NON-FASTING; NON-FAST FASTING:NO AN UPDATE OR CORRECTION HAS BEEN MADE TO NAME,SEX FASTING: NO VITAMIN B12 705 001-1088 pg/mL FOLATE, SERUM >24.0 Reference Range Low: <3.4 Borderline: 3.4-5.4 Normal: >5.4 TSH (899) Reviewed date:03/08/2024 11:46:10 AM Interpretation: Performing Lab:[facility]-Tsuwqn37535 [address], ElokyiCI[address] Fany Carreon MD Notes/Report: NON-FASTING; NON-FASTING; NON-FASTING; NON-FASTING; NON-FAST FASTING:NO AN UPDATE OR CORRECTION HAS BEEN MADE TO NAME,SEX FASTING: NO TSH 1.08 0.40-4.50 mIU/L VITAMIN D,25-OH,TOTAL,IA (17 306) Reviewed date:03/08/2024 11:46:10 AM Interpretation: Performing Lab:Mike SERRANO [facility]-Pyntta67036 Yordy [facility], VpzglxSC[address] Fany Carreon MD Notes/Report: NON-FASTING; NON-FASTING; NON-FASTING; [...] D, (D2,D3), LC/MS/MS is recommended: order code 93131 (patients >2yrs). See Note 1 Note 1 For additional information, please refer to http://education.[employer].Bahamaslocal.com/faq/XHG939 (This link is being provided for informational/ educational purposes only.) ZINC (945) Reviewed date:03/08/2024 11:46:10 AM Interpretation: Performing Lab:Mike MARCOS-Armando Epzd7405 [facility], Armando BrownDwseQN[address] Alok Charles Notes/Report: NON-FASTING; NON-FASTING; NON-FASTING; NON-FASTING; NON-FAST FASTING:NO AN UPDATE OR CORRECTION HAS BEEN MADE TO NAME,SEX FASTING: NO ZINC 74 60-130 mcg/dL This test was developed and its analytical performance characteristics have been determined by [facility]. It has not been cleared or approved by the FDA. This assay has been validated pursuant to the CLIA regulations and is used for clinical purposes. VITAMIN B1 (THIAMINE), SERUM /PLASMA, LC/MS/MS (70816) Reviewed date:03/13/2024 10:55:37 AM Interpretation: Performing Lab:Zaira, [facility]-RxiAaanbm[address] [address], [address], SbqiukhlooGL[address] Sterling Estrada MD,PhD Notes/Report: NON-FASTING; NON-FASTING; NON-FASTING; NON-FASTING; NON-FAST FASTING:NO AN UPDATE OR CORRECTION HAS BEEN MADE TO NAME,SEX FASTING: NO VITAMIN B1 (THIAMINE), SERUM/PLASMA, LC/MS/MS 102 8-30 nmol/L (Note) Vitamin supplementation within 24 hours prior to blood draw may affect the accuracy of the results. This test was developed and its analytical performance characteristics have been determined by [facility]. It has not been cleared or approved by FDA. This assay has been validated pursuant to the CLIA regulations and is used for clinical purposes. [facility] med fusion [address] [facility] [address] [facility] [id number] Sterling Estrada MD, PhD Reason For Referral No Information Medications Medication SIG (Take, Route, Frequency, Duration) Notes Start Date End Date Status Vitamin D2 Active Triamcinolone Acetonide 0.5 % 1 application Externally Two times a Week Active Calcium Active Multivitamin - 1 tablet Orally Once a day Active Vitamin C Active Vitamin B Complex - as directed Orally Active Problems Problem Type SNOMED Code ICD Code Onset Dates Problem Status W/U Status Risk Notes Problem 696552225 Postsurgical malabsorption, not elsewhere classified (K91.2) Active confirmed Problem 303652417 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 Vital Signs Heart Rate 73 /min 01/12/2024 Temperature 97.8 degrees Fahrenheit 01/12/2024 Height-cm 190.5 cm 01/12/2024 Blood pressure diastolic 76 mm Hg 01/12/2024 Oximetry 98 % 01/12/2024 Weight-kg 92.99 kg 01/12/2024 Height 75 in 01/12/2024 Blood pressure systolic 120 mm Hg 01/12/2024 Weight 205 lbs 01/12/2024 BMI 25.62 kg/m2 01/12/2024 Encounters Encounter Location Date Provider Diagnosis [facility] [address] [place] [address] 01/12/2024 Fede Pena History of sleeve gastrectomy Z90.3 ; Postsurgical malabsorption, not elsewhere classified K91.2 ; Vitamin deficiency, unspecified E56.9 ; Other specified personal risk factors, not elsewhere classified Z91.89 ; S/P bariatric surgery Z98.84 and Acquired absence of stomach [part of] Z90.3 [facility] [address] [facility] [address] [address] 10/23/2023 Provider Migration [facility] [address] [address] 10/24/2023 Provider Migration [facility] [address] [address] 02/09/2024 Fede Pena Vitamin deficiency, unspecified E56.9 ; Other specified personal risk factors, not elsewhere classified Z91.89 ; S/P bariatric surgery Z98.84 and Postoperative intestinal malabsorption K91.2 [facility] [address] [facility] [address] [address] 02/09/2024 Fede Pena Vitamin deficiency, unspecified E56.9 ; Other specified personal risk factors, not elsewhere classified Z91.89 ; S/P bariatric surgery Z98.84 and Postoperative intestinal malabsorption K91.2 [facility] [address] [address] 02/15/2024 Fede Pena Assessments Encounter Date Diagnosis (ICD Code) Assessment Notes Treatment Notes Treatment Clinical Notes Section Notes 01/12/2024 Other specified personal risk factors, not elsewhere classified (ICD-10 - Z91.89) 01/12/2024 S/P bariatric surgery (ICD-10 - Z98.84) 01/12/2024 History of sleeve gastrectomy (ICD-10 - Z90.3) 02/09/2024 Vitamin deficiency, unspecified (ICD-10 - E56.9) 02/09/2024 Other specified personal risk factors, not elsewhere classified (ICD-10 - Z91.89) 02/09/2024 S/P bariatric surgery (ICD-10 - Z98.84) 02/09/2024 Postoperative intestinal malabsorption (ICD-10 - K91.2) 02/09/2024 Vitamin deficiency, unspecified (ICD-10 - E56.9) 02/09/2024 Other specified personal risk factors, not elsewhere classified (ICD-10 - Z91.89) 02/09/2024 S/P bariatric surgery (ICD-10 - Z98.84) 02/09/2024 Postoperative intestinal malabsorption (ICD-10 - K91.2) 01/12/2024 Vitamin deficiency, unspecified (ICD-10 - E56.9) 01/12/2024 Postsurgical malabsorption, not elsewhere classified (ICD-10 - K91.2) 01/12/2024 Acquired absence of stomach [part of] (ICD-10 - Z90.3) Plan Of Treatment Pending Test Test Name Order Date LIPID PANEL, STANDARD (7600) 01/12/2024 IRON, TIBC AND FERRITIN PANEL (5616) IRON, TIBC AND FERRITIN PANEL (5616) 03/2024 COMPREHENSIVE METABOLIC PANEL (35659) COMPREHENSIVE METABOLIC PANEL (90300) CBC (H/H, RBC, INDICES, WBC, PLT) (1759) 01/12/2024 CBC (H/H, RBC, INDICES, WBC, PLT) (1759) 02/09/2024 HEMOGLOBIN A1c (496) 02/09/2024 HEMOGLOBIN A1c (496) 01/12/2024 VITAMIN B12/FOLATE, SERUM PANEL (7065) 0 01/12/2024 VITAMIN B12/FOLATE, SERUM PANEL (7065) 0 02/09/2024 TSH (899) 02/09/2024 TSH (899) 01/12/2024 VITAMIN D,25-OH,TOTAL,IA (19789) 024 VITAMIN D,25-OH,TOTAL,IA (45949) 024 ZINC (945) 01/12/2024 ZINC (945) 02/09/2024 VITAMIN B1 (THIAMINE), SERUM/PLASMA, LC/ MS/MS (58729) 02/09/2024 VITAMIN B1 (THIAMINE), SERUM/PLASMA, LC/ MS/MS (21468) 01/12/2024 Next Appt Details Provider Name:Fede hansen, 01/10/2025 01:15:00 PM, [address] [address], [place], [address], Insurance Providers Payer Name Payer Address Payer Phone Subscriber Number Group Number Insured Name Patient Relationship to Insured Coverage Start Date Coverage End Date [employer] [address] [place] [address] [id number] MICHAEL FUNG Self - patient is the insured Medical (General) History Medical History History ICD Code obstructive sleep apnea peptic ulcer disease Asthma Hypertension Surgical History Surgery Date(Month/Year) Lap Sleeve Gastrectomy, Dr. Pena 2020
[2024-07-22 22:17] VITALS: BP 116/75; PULSE 65; RESP 17; TEMP 36.3; O2SAT 100
--- OUTSIDE RECORDS SUMMARY | 2024-07-23 01:07 | XMS_ITS | Clinical Summary ---
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
--- OUTSIDE RECORDS SUMMARY | 2024-07-23 01:07 | XMS_ITS ---
Author Organization [facility] Address [address] [facility] [address] [place] [address] Care Team Providers Care Global Human Resources Director Name Role Phone Fede Pena DO Unavailable [phone] REASON FOR VISIT Lab results Encounters Encounter Location Date Provider Diagnosis [facility] [address] [place] [address] 02/15/2024 Fede Pena Plan Of Treatment Next Appt Details Provider Name:Fede hansen, 01/10/2025 01:15:00 PM, [address], [address], [place], [address], Progress Notes * MICHAEL FUNGDOB:1975 (48 yo Other)Acc No.[id number]:02/15/2024 Patient: MICHAEL YOUSSEF :1975 A ge:48 Y S ex:Unknown Address:[address] [place], [address] * true * Date: Generated for Brookei brady/Fasumayag/eTransmitting on: 0 07/23/2024 01:07 AM DOCTOR PODIATRIC MEDICINE
--- OUTSIDE RECORDS SUMMARY | 2024-07-23 01:07 | XMS_ITS | Clinical Summary ---
Author Organization [facility] Address [address] [place] [address] Phone Care Team Providers Care Beef Pusher Name Role Phone Unavailable Primary Care Provider [...] 05/29/2021 Immunizations Immunization Administration Dates Next Due ([employer])(12 YR UP) COVID-19 VACCINE - EMERGENCY USE AUTHORIZATION, MRNA, [id number](PF) 30 MCG/0.3 ML IM SUSP 09/04/2020,08/16/2020 Social [...] this topic Medical Devices Implanted Type Area Organizational Development Manager Device Identifier Shelf Expiration Date Model / Serial / Lot Hemostat Surg Snow 2x4in 2081 - [id number] Implanted:Qt y: 1 on 03/21/2021 by Fede Pena DO at [facility] Hemostatic N/A: Abdomen J[employer]J- [employer] [id number] 11/27/2022 208 / / [id number] Insurance [place] BLUE ACCESS CHOICE RX PRIME THERAPEUTICS Commercial RX HOGAN PLANS (INTERNAL) [facility] Internal Plans Advance Directives For more information, please contact: [phone] * Full Code (Latest Code Status on File) Date Activated Date Inactivated Comments 03/21/2021 5:56 PM 03/22/2021 8:39 PM * Full Code Date Activated Date Inactivated Comments 03/21/2021 1:59 PM 03/21/2021 5:56 PM * Full Code Date Activated Date Inactivated Comments 03/21/2021 11:44 AM 03/21/2021 1:59 PM
--- OUTSIDE RECORDS SUMMARY | 2024-07-23 01:07 | XMS_ITS ---
Author Organization [facility] Address [address] [facility] [address] [place] [address] Care Team Providers Care Family Engagement Specialist Name Role Phone Fede Pena DO Unavailable [phone] Encounters Encounter Location Date Provider Diagnosis [facility] [address] [facility] [address] [place] [address] 02/09/2024 Fede Pena Vitamin deficiency, unspecified E56.9 [...] FERRITIN PANEL (5616) 03/2024 COMPREHENSIVE METABOLIC PANEL (74156) CBC (H/H, RBC, INDICES, WBC, PLT) (1759) 02/09/2024 HEMOGLOBIN A1c (496) 02/09/2024 VITAMIN B12/FOLATE, SERUM PANEL (7065) 0 02/09/2024 TSH (899) 02/09/2024 VITAMIN D,25-OH,TOTAL,IA (63929) 024 ZINC (945) 02/09/2024 VITAMIN B1 (THIAMINE), SERUM/PLASMA, LC/ MS/MS (71541) 02/09/2024 Next Appt Details Provider Name:Fede hansen, 01/10/2025 01:15:00 PM, [address], [address], Progress Notes * MICHAEL FUNGDOB:1975 (48 yo Other)Acc No.[id number]:02/09/2024 Patient: MICHAEL YOUSSEF :1975 A ge:48 Y S ex:Unknown Address:[address] [place] [address] [place], [place], [place] [address] Subjective: * Chief Complaints: * * Medical [...] PANEL (5616) L AB: COMPREHENSIVE METABOLIC PANEL (21594) L AB: CBC (H/H, RBC, INDICES, WBC, PLT) (1759) L AB: HEMOGLOBIN A1c (496) L AB: VITAMIN B12/FOLATE, SERUM PANEL (7065) L AB: TSH (899) L AB: VITAMIN D,25-OH,TOTAL,IA (27068) L AB: ZINC (945) L AB: VITAMIN B1 (THIAMINE), SERUM/PLASMA, LC/MS/MS (78188) 3. S /P bariatric surgery L AB: IRON, TIBC AND FERRITIN PANEL (5616) L AB: COMPREHENSIVE METABOLIC PANEL (21256) L AB: CBC (H/H, RBC, INDICES, WBC, PLT) (1759) L AB: HEMOGLOBIN A1c (496) L AB: VITAMIN B12/FOLATE, SERUM PANEL (7065) L AB: TSH (899) L AB: VITAMIN D,25-OH,TOTAL,IA (02872) L AB: ZINC (945) L AB: VITAMIN B1 (THIAMINE), SERUM/PLASMA, LC/MS/MS (63827) 4. P ostoperative intestinal malabsorption L AB: IRON, TIBC AND FERRITIN PANEL (5616) L AB: COMPREHENSIVE METABOLIC PANEL (61353) L AB: CBC (H/H, RBC, INDICES, WBC, PLT) (1759) L AB: HEMOGLOBIN A1c (496) L AB: VITAMIN B12/FOLATE, SERUM PANEL (7065) L AB: TSH (899) L AB: VITAMIN D,25-OH,TOTAL,IA (15371) L AB: ZINC (945) L AB: VITAMIN B1 (THIAMINE), SERUM/PLASMA, LC/MS/MS (53841) * Procedure Codes: * true * Date: Generated for Frieda abreu/Brian/Chrisitting on: 0 07/23/2024 01:07 AM MARKETING ACCOUNT EXECUTIVE
--- OUTSIDE RECORDS SUMMARY | 2024-07-23 01:07 | XMS_ITS | Referral Summary ---
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
--- NOTE | 2024-07-23 01:24 | ED.GENADULT ---
HPI - General Adult General Chief complaint: Extremity Injury, Lower Stated complaint: POSSIBLE INFECTION BILATERAL FEET Time Seen by Provider: 07/23/24 00:56 History of Present Illness HPI narrative: Patient is a 48-year-old male who presents to the emergency department this evening complaining a wound to his right ankle. Patient states that [place] the beach [place] and was wearing shoes that continued to rub against the back of his ankle causing him to have a blister there. Throughout the following few days patient started to notice that the medial aspect of his right ankle joint has become more swelling and red and today started to cause him a lot of discomfort so he decided to come to the emergency department for further evaluation. States that he has been using some Neosporin 100 peroxide at home without improvement of his symptoms. No additional symptoms or concerns at this time. Patient denies any history of diabetes. Related Data Home Medications ?Medication ?Instructions ?Recorded ?Confirmed ?Last Taken ?Type multivitamin 1 tablet PO DAILY 04/09/21 11/08/23 Unknown History ascorbic acid (vitamin C) 1,000 mg 1 g PO DAILY 10/01/21 11/08/23 Unknown History tablet calcium carbonate (Calcium 600) 1,200 mg PO DAILY 10/01/21 11/08/23 Unknown History vitamin B complex (B 1 tablet PO DAILY 10/01/21 11/08/23 Unknown History Complex-Vitamin B12 tablet) Allergies Allergy/AdvReac Type Severity Reaction Status Date / Time No Known Allergies Allergy Mild Verified 07/22/24 22:16 Review of Systems Review of Systems: All systems are reviewed and are negative unless stated otherwise in the HPI. [facility] Past Medical History Medical History Viral gastroenteritis Screening for colon cancer Gastric ulcer Abnormal abdominal CT scan Dyslipidemia Essential (primary) hypertension resolved after bariatric surgery( sleeve gastrectomy) and weight loss Intermittent low back pain Family history of prostate cancer Surgical History Surgical History History of sleeve gastrectomy (~02/2021) 03/21/21 H/O hernia repair (~1977) congenital inguinal hernia Social History Social History Smoking status: Never smoker Second hand tobacco smoke exposure: No Alcohol intake: current Alcohol use details: 1 drink monthly Substance use: never Substance use type: does not use Lack of Transportation: No Lack of Food: Never True Current Housing: I Have Housing Concerned About Future Housing: No Difficulty Paying Gas/Electric Bills: No Difficulty Paying for Meds: No Currently Unemployed: No Education: Associate Degree Difficulty w/ Childcare or Family Care: No Living arrangements: with family Occupation/Education: occupation Gender identity (if verbalized by the patient): Male Spiritual care concerns: No Agree to blood products: Yes Exam Narrative: General: Alert, awake, afebrile, in no acute distress. HEENT: PERRL, no rhinorrhea, no post nasal drip, oropharynx clear. Neck: Trachea midline, no JVD, no lymphadenopathy. Cardiovascular: Regular rate and rhythm, no murmurs, rubs or gallops, no peripheral edema. Respiratory: Clear to auscultation bilaterally, no tachypnea, no wheezing, no rhonchi, no rubs, no respiratory distress. Abdomen: Soft, nontender, nondistended, no rebound, no guarding, no peritoneal signs. Musculoskeletal: No joint swelling or deformity, normal muscle tone. Skin: Cellulitis noted to the medial aspect of the right ankle joint with erythema and tenderness to palpation. Psychiatric: Alert and oriented, normal behavior and judgment for situation. Neurological: Alert and oriented to person, place, and time. Follows all commands. No focal deficits, speech is clear and fluent. Course Vital Signs Vital signs: Vital Signs Temperature 97.3 F L 07/22/24 22:17 Pulse Rate 65 07/22/24 22:17 Respiratory Rate 17 07/22/24 22:17 Blood Pressure 116/75 07/22/24 22:17 Pulse Oximetry 100 07/22/24 22:17 Oxygen Delivery Room Air 07/22/24 22:17 Temperature 97.3 F L 07/22/24 22:17 Pulse Rate 60 07/23/24 01:30 Respiratory Rate 17 07/23/24 01:30 Blood Pressure 126/85 07/23/24 01:30 Pulse Oximetry 100 07/23/24 01:30 Oxygen Delivery Room Air 07/22/24 22:17 Medical Decision Making MDM Narrative Medical decision making narrative: The patient was evaluated by myself in the emergency department. History is obtained from patient who is an independent historian and physical exam was performed. External medical records were reviewed at this time. IV was established and pertinent tests were ordered. Patient was administered 4 mg IV morphine for pain and 4 mg IV Zofran for nausea. Laboratory results obtained revealing no acute process. Patient's inflammatory markers including CRP and ESR were both noted to be within normal limits. At this time, patient was informed of these findings at bedside. He was administered his 1st dose of antibiotic in the emergency department with 2 g of IV ceftriaxone. Patient was informed that he will be placed on an oral antibiotic to take at home for the next 7 days and patient is agreeable with this plan. Imaging studies obtained included right ankle x-ray which was independently interpreted by me revealing no acute process, which is pending final radiology interpretation. Differential diagnosis considerations include cellulitis, abscess. Comorbidities impacting this visit include none. I have evaluated and discussed social determinants of health with the patient that could potentially impact subsequent diagnosis and treatment plans. On repeat assessment of the patient, reevaluation revealed that the patient is doing well and is in no acute distress. Patient symptoms have improved since he arrived to our emergency department. Repeat vital signs were all reviewed and noted to be stable. Differential diagnosis and treatment plan were discussed with the patient at bedside. Patient agrees with discussion and after shared medical decision making agrees with discharge. All questions were answered to the patient's satisfaction. Patient will follow up with his PCP in 3-5 days. A script for cephalexin was sent to patient's pharmacy to take as prescribed. Patient was provided with strict return precautions and instructed to return to the emergency department if any new or worsening symptoms develop. The patient was discharged in stable condition. Vital Signs Vital Signs: Vital Signs Temperature 97.3 F L 07/22/24 22:17 Pulse Rate 65 07/22/24 22:17 Respiratory Rate 17 07/22/24 22:17 Blood Pressure 116/75 07/22/24 22:17 Pulse Oximetry 100 07/22/24 22:17 Oxygen Delivery Room Air 07/22/24 22:17 Temperature 97.3 F L 07/22/24 22:17 Pulse Rate 60 07/23/24 01:30 Respiratory Rate 17 07/23/24 01:30 Blood Pressure 126/85 07/23/24 01:30 Pulse Oximetry 100 07/23/24 01:30 Oxygen Delivery Room Air 07/22/24 22:17 Lab Data 07/23/24 01:24 07/23/24 01:24 Labs: Lab Results 07/23/24 Range/Units 01:24 WBC 6.0 (4.5-10.0) K/mm3 RBC 4.22 L (4.6-6.20) M/mm3 Hgb 13.1 L (14.0-18.0) g/dL Hct 38.4 L (42.0-52.0) % MCV 91.0 (80-100) fl MCH 31.0 (26-34) pg MCHC 34.1 (32-36) g/dl RDW 12.6 (11.5-14.5) % Plt Count 149 L (150-375) k/mm3 MPV 8.8 (7.4-10.4) fl Immature Gran % (Auto) 0.2 (0-0.5) % Neut % (Auto) 52.9 (45.5-73.1) % Lymph % (Auto) 30.8 (18.3-44.2) % Bates % (Auto) 9.3 H (2.6-8.5) % Eos % (Auto) 6.3 H (0-4.4) % Baso % (Auto) 0.5 (0.2-1.2) % Lymph # (Auto) 1.86 (0.9-3.2) K/mm3 Bates # (Auto) 0.6 (0.1-0.6) K/mm3 Eos # (Auto) 0.4 H (0-0.3) K/mm3 Baso # (Auto) 0.0 (0.0-0.1) K/mm3 Abs Immat Gran (auto) 0.01 (0.00-0.031) K/mm3 Absolute Neuts (auto) 3.2 (1.3-6.7) K/mm3 Absolute Nucleated RBC 0.000 (0.0-0.012) K/mm3 Nucleated RBC % 0.0 (0.0-0.2) % ESR 15 (0-20) mm/hr Sodium 140 (137-145) mmol/L Potassium 4.1 (3.4-5.0) mmol/L Chloride 103 (98-107) mmol/L Carbon Dioxide 29 (22-30) mmol/L Anion Gap 8 (4-12) mmol/L BUN 18 (9-20) mg/dL Creatinine 1.05 (0.7-1.3) mg/dL Estim Creat Clear Calc 93 ml/min Estimated GFR > 60 (59 - ) Glucose 93 (65-110) mg/dL Calcium 9.0 (8.4-10.2) mg/dL Total Bilirubin 0.4 (0.2-1.3) mg/dL AST 25 (17-59) U/L ALT 18 (6-50) U/L Alkaline Phosphatase 58 (38-126) U/L C-Reactive Protein 1.1 (<1.0) mg/dL Total Protein 7.0 (6.3-8.2) g/dL Albumin 3.9 (3.5-5.1) g/dL Discharge Plan Discharge Clinical Impression: Cellulitis of leg Patient Disposition: Home, Self-Care Condition: Improved Instructions: Antibiotic Form, Cellulitis (ED) Additional Instructions: Please take the prescribed antibiotic as instructed for your right ankle cellulitis. Return to the emergency department if your symptoms do not improve in the next 48 hours. Follow-up with your family doctor within the next 3-5 days. Patient Language: Urdu Prescriptions: New cephalexin 500 mg capsule 500 mg PO Q6H 7 Days Qty: 28 0RF No Action multivitamin Tablet 1 tablet PO DAILY vitamin B complex [B Complex-Vitamin B12] Tablet 1 tablet PO DAILY calcium carbonate [Calcium 600] 600 mg calcium (1,500 mg) tablet 1,200 mg PO DAILY ascorbic acid (vitamin C) 1,000 mg tablet 1 g PO DAILY scopolamine base 1 mg over 3 days patch 3 day 1 patch transdermal Q3D PRN (Reason: motion sickness) Qty: 4 1RF Follow-up/Referrals: Vinicio Garcia MD [Primary Care Provider] - 3 Days Time of Disposition: 02:30
[2024-07-23] MEDS: ONDANSETRON INJ 4 MG/2 ML VIAL IV PUSH (01:25)
[2024-07-23] MEDS: MORPHINE SULFATE (*CRX) 4 MG/ML INJ IV PUSH (01:25)
[2024-07-23 01:30] VITALS: BP 126/85; PULSE 60; RESP 17; O2SAT 100
[2024-07-23 01:36] LABS: Basophils Percent Auto 0.5 % (0.2-1.2); Eosinophils Absolute Auto 0.4 K/mm3 (0-0.3); Eosinophils Percent Auto 6.3 % (0-4.4); Hematocrit 38.4 % (42.0-52.0); Hemoglobin 13.1 g/dL (14.0-18.0); Immature Granulocyte Absolute 0.01 K/mm3 (0.00-0.031); Immature Granulocyte Percent A 0.2 % (0-0.5); Lymphocytes Absolute Auto 1.86 K/mm3 (0.9-3.2); Lymphocytes Percent Auto 30.8 % (18.3-44.2); Mean Corpuscular HGB Conc 34.1 g/dl (32-36); Mean Platelet Volume 8.8 fl (7.4-10.4); Monocytes Absolute Auto 0.6 K/mm3 (0.1-0.6); Monocytes Percent Auto 9.3 % (2.6-8.5); Neutrophils Absolute Auto 3.2 K/mm3 (1.3-6.7); Neutrophils Percent Auto 52.9 % (45.5-73.1); Platelet Count Result 149 k/mm3 (150-375); Red Blood Count 4.22 M/mm3 (4.6-6.20); Red Cell Distribution Width 12.6 % (11.5-14.5)
[2024-07-23 01:51] LABS: Alanine Aminotransferase 18 U/L (6-50); Albumin Level 3.9 g/dL (3.5-5.1); Alkaline Phosphatase 58 U/L (38-126); Anion Gap 8 mmol/L (4-12); Aspartate Amino Transferase 25 U/L (17-59); Bilirubin,Total 0.4 mg/dL (0.2-1.3); Blood Urea Nitrogen 18 mg/dL (9-20); Carbon Dioxide 29 mmol/L (22-30); Chloride 103 mmol/L (98-107); Estimated CRCL calculation 93 ml/min; Estimated Glomerular Filt Rate > 60; Glucose 93 mg/dL (65-110); Potassium 4.1 mmol/L (3.4-5.0); Sodium 140 mmol/L (137-145)
[2024-07-23 02:10] LABS: Erythrocyte Sedimentation Rate 15 mm/hr (0-20)
[2024-07-23 02:25] LABS: CRP 1.1 mg/dL (<1.0)
[2024-07-23] MEDS: ceFAZolin 2 GM/D5W 50 ML 2 GM/50 ML BAG IVPB (02:34)
[2024-07-23 02:41] VITALS: BP 125/81; PULSE 57; RESP 17; O2SAT 97
[2024-07-23 03:21] VITALS: BP 127/80; PULSE 60; RESP 18; O2SAT 98
== END 2024-07-23 03:22 | disposition home or self-care (01) ==
PROVIDERS: Emergency Provider Emergency Medicine; PCP Family Medicine
DX: L03.115 Cellulitis of right lower limb (principal); E78.5 Hyperlipidemia, unspecified; Z98.84 Bariatric surgery status
CPT/HCPCS: 36415; 73610; 80053; 85025; 85652; 86140; 96365; 96375; 99284; J0690; J2270; J2405

== ENCOUNTER 2024-12-06 08:54 | Outpatient (CLI) | payer BC, SELFPAY ==
--- OUTSIDE RECORDS SUMMARY | 2024-12-06 09:00 | XMS_ITS | Clinical Summary ---
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 Gender Identity Not on file Sexual Orientation [...] 9:35 AM CDT Height 190.5 cm (6' 3) 11/04/2020 9:35 AM CDT Body Mass Index 42.75 11/04/2020 9:35 AM CDT Plan of Treatment Health Maintenance Due Date Last Done Comments Colon Cancer Screening-Colonoscopy 1975 Depression Screening 1975 Hepatitis C Screening 1975 DTaP/Tdap/Td Vaccine (1 - Tdap) 1988 Hepatitis B Screening 08/26/1995 Regular Well Visit/Exam 18-64 08/26/1995 Influenza Vaccine (Season Ended) 2025 03/08/20 20 Pneumococcal vaccine <65 Aged Out No longer eligible based on patient's age to complete this topic Insurance [email or web address] [address] [place] [address] Care Teams Claims Consultant Relationship Specialty Start Date End Date Miscellaneous, Not In File PCP - General 07/02/23 Zeb Garcia MD Family Practice 07/02/23
--- OUTSIDE RECORDS SUMMARY | 2024-12-06 09:00 | XMS_ITS | Clinical Summary ---
Author Organization [facility] Address [address] [place] [address] Phone Care Team Providers Care Spool Sorter Name Role Phone Unavailable Primary Care Provider [...] 05/29/2021 Immunizations Immunization Administration Dates Next Due ([employer])(12 YR UP) COVID-19 VACCINE - EMERGENCY USE AUTHORIZATION, MRNA, [id number](PF) 30 MCG/0.3 ML IM SUSP 09/04/2020,08/16/2020 Social [...] P M CDT Height 190.5 cm (6' 3) 09/24/2022 2:10 PM CDT Body Mass Index 26.65 09/24/2022 2:10 PM CDT Plan of Treatment Health Maintenance Due Date Last Done Comments DTAP/TDAP/TD VACCINES (1 - Tdap) 1996 HEPATITIS B VACCINES (1 of 3 - 19+ 3-dose series) 1996 COLORECTAL SCREENING 2022 Colorectal Cancer Screening 2022 FIT-DNA Q 3 years 2022 FIT/FOBT Q 1 year 2022 Flex Sig/CT Colonography Q 5 years 2022 COVID-19 Vaccine ( season) 01/30/202411/2020, 08/16/2020 INFLUENZA VACCINE (#1) 2024 03/31/2021 Medical Devices Implanted Type Area Sailing Master Device Identifier Shelf Expiration Date Model / Serial / Lot Hemostat Surg Snow 2x4in 2082 - [id number] Implanted:Qt y: 1 on 03/21/2021 by Fede Pena DO at [facility] Hemostatic N/A: Abdomen [employer]- [employer] [id number] 11/27/2022 2082 / / [id number] Insurance [facility] BLUE ACCESS CHOICE RX [employer] THERAPEUT[employer] Commercial RX [employer]OG[employer] PLANS (INTERNAL) [facility] Internal Plans Advance Directives For more information, please contact: [phone] * Full Code (Latest Code Status on File) Date Activated Date Inactivated Comments 03/21/2021 5:56 PM 03/22/2021 8:39 PM * Full Code Date Activated Date Inactivated Comments 03/21/2021 1:59 PM 03/21/2021 5:56 PM * Full Code Date Activated Date Inactivated Comments 03/21/2021 11:44 AM 03/21/2021 1:59 PM
--- OUTSIDE RECORDS SUMMARY | 2024-12-06 09:00 | XMS_ITS ---
Author Organization [facility] Address [address] [place], [place] [address] Care Team Providers Care Account Receivable Associate Name Role Phone Fede Pena DO Unavailable [phone] Allergies No Known Allergies REASON FOR VISIT [...] Status Risk Notes Problem Post-surgical malabsorption (disorder) (764779628) Postsurgical malabsorption, not elsewhere classified (K91.2) Active confirmed Problem History of gastrectomy (679976932) 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) [...] [address] [place], [place] [address] 01/12/2024 Fede Pena History of sleeve gastrectomy [...] AND FERRITIN PANEL (5616) COMPREHENSIVE METABOLIC PANEL (17655) CBC (H/H, RBC, INDICES, WBC, PLT) (1759) 01/12/2024 HEMOGLOBIN A1c (496) 01/12/2024 VITAMIN B12/FOLATE, SERUM PANEL (7065) 0 01/12/2024 TSH (899) 01/12/2024 VITAMIN D,25-OH,TOTAL,IA (22627) 024 ZINC (945) 01/12/2024 VITAMIN B1 (THIAMINE), SERUM/PLASMA, LC/ MS/MS (41094) 01/12/2024 Next Appt Details Provider Name:Fede hansen, 01/10/2025 01:15:00 PM, [address], [address], [id number], Procedure Notes * Category Sub-Category Detail Notes [...] arise; and continue to follow-up with bariatric velvet cutter. There are no barriers to education today: [...] Notes * MICHAEL FUNGDOB:1975 (49 yo Other)Acc No.[id number]:01/12/2024 Patient: MICHAEL YOUSSEF Provider: Sidney Pena DO :1975 A ge:48 Y S ex:Unknown Date:01/12/2024 Address:[address] [place] [address] , [facility] Subjective: * Chief Complaints: * 1 . [...] disease, Asthma, Hypertension. * Surgical History: L anjelica Sleeve Gastrectomy, Dr. Pena 03/21/2021. * Social [...] PANEL (5616) L AB: COMPREHENSIVE METABOLIC PANEL (12554) L AB: CBC (H/H, RBC, INDICES, WBC, PLT) (1759) L AB: HEMOGLOBIN A1c (496) L AB: VITAMIN B12/FOLATE, SERUM PANEL (7065) L AB: TSH (899) L AB: VITAMIN D,25-OH,TOTAL,IA (75112) L AB: ZINC (945) L AB: VITAMIN B1 (THIAMINE), SERUM/PLASMA, LC/MS/MS (13050) 3. P ostsurgical malabsorption, not elsewhere classified L AB: LIPID PANEL, STANDARD (7600) L AB: IRON, TIBC AND FERRITIN PANEL (5616) L AB: COMPREHENSIVE METABOLIC PANEL (78061) L AB: CBC (H/H, RBC, INDICES, WBC, PLT) (1759) L AB: HEMOGLOBIN A1c (496) L AB: VITAMIN B12/FOLATE, SERUM PANEL (7065) L AB: TSH (899) L AB: VITAMIN D,25-OH,TOTAL,IA (30490) L AB: ZINC (945) L AB: VITAMIN B1 (THIAMINE), SERUM/PLASMA, LC/MS/MS (12224) 4. O ther specified personal risk factors, not elsewhere classified L AB: LIPID PANEL, STANDARD (7600) L AB: IRON, TIBC AND FERRITIN PANEL (5616) L AB: COMPREHENSIVE METABOLIC PANEL (18732) L AB: CBC (H/H, RBC, INDICES, WBC, PLT) (1759) L AB: HEMOGLOBIN A1c (496) L AB: VITAMIN B12/FOLATE, SERUM PANEL (7065) L AB: TSH (899) L AB: VITAMIN D,25-OH,TOTAL,IA (96238) L AB: ZINC (945) L AB: VITAMIN B1 (THIAMINE), SERUM/PLASMA, LC/MS/MS (67897) 5. S /P bariatric surgery L AB: LIPID PANEL, STANDARD (7600) L AB: IRON, TIBC AND FERRITIN PANEL (5616) L AB: COMPREHENSIVE METABOLIC PANEL (11077) L AB: CBC (H/H, RBC, INDICES, WBC, PLT) (1759) L AB: HEMOGLOBIN A1c (496) L AB: VITAMIN B12/FOLATE, SERUM PANEL (7065) L AB: TSH (899) L AB: VITAMIN D,25-OH,TOTAL,IA (55007) L AB: ZINC (945) L AB: VITAMIN B1 (THIAMINE), SERUM/PLASMA, LC/MS/MS (84147) * Procedures: P ost Operative Plan: Education: [...] arise; and continue to follow-up with bariatric velvet cutter. There are no barriers to education today . DISPOSITION: R eturn in 6 months for follow-up visit. Mayco greenwood also instructed to have repeat labs drawn [...] * Electronic signature of Lanre Pena DO, [id number] on 12/06/2024 at 09:00 AM CDT Sign off status: Pending * Provider: Sidney Pena DO Date: 0 01/12/2024 Generated for Frieda abreu/Brian/Veronica on: 12/06/2024 09:00 AM CDT History and Physical Notes * HPI (History [...]
--- OUTSIDE RECORDS SUMMARY | 2024-12-06 09:00 | XMS_ITS | Referral Summary ---
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
--- OUTSIDE RECORDS SUMMARY | 2024-12-06 09:00 | XMS_ITS | Patient Health Record ---
Author Organization [facility] Loss Address [address] [place], [place] [id number] Care Team Providers Care Legal Financial Specialist Name Role Phone Fede Pena DO Unavailable [phone] Allergies No Known Allergies Results Component Value Reference Range Notes VITAMIN B1 (THIAMINE), SERUM /PLASMA, LC/MS/MS (63588) Reviewed date:03/13/2024 10:55:37 AM Interpretation: Performing Lab:ZChristopher, [facility] [place] [address], [address], EfpewqjgfnPH[address] Sterling Estrada MD,PhD Notes/Report: NON-FASTING; NON-FASTING; NON-FASTING; NON-FASTING; NON-FAST FASTING:NO AN UPDATE OR CORRECTION HAS BEEN MADE TO NAME,SEX FASTING: NO VITAMIN B1 (THIAMINE), SERUM/PLASMA, LC/MS/MS 102 8-30 nmol/L (Note) Vitamin supplementation within 24 hours prior to blood draw may affect the accuracy of the results. This test was developed and its analytical performance characteristics have been determined by [facility]. It has not been cleared or approved by FDA. This assay has been validated pursuant to the CLIA regulations and is used for clinical purposes. MD [facility] [address] [facility] [address] Sterling Estrada MD, PhD ZINC (891) Reviewed date:03/08/2024 11:46:10 AM Interpretation: Performing Lab:[facility], [facility] [address], [place] Alok Charles Notes/Report: NON-FASTING; NON-FASTING; NON-FASTING; NON-FASTING; NON-FAST FASTING:NO AN UPDATE OR CORRECTION HAS BEEN MADE TO NAME,SEX FASTING: NO ZINC 74 60-130 mcg/dL This test was developed and its analytical performance characteristics have been determined by [facility]. It has not been cleared or approved by the FDA. This assay has been validated pursuant to the CLIA regulations and is used for clinical purposes. VITAMIN B12/FOLATE, SERUM PA JOSEPH (7065) Reviewed date:03/08/2024 11:46:10 AM Interpretation: Performing Lab:Mike SERRANO-Ftsxxz[address], IamdqwYM[address] Fany Carreon MD Notes/Report: NON-FASTING; NON-FASTING; NON-FASTING; NON-FASTING; NON-FAST FASTING:NO AN UPDATE OR CORRECTION HAS BEEN MADE TO NAME,SEX FASTING: NO VITAMIN B12 944 553-4236 pg/mL FOLATE, SERUM >24.0 Reference Range Low: <3.4 Borderline: 3.4-5.4 Normal: >5.4 HEMOGLOBIN A1c (496) Reviewed date:03/08/2024 11:46:10 AM Interpretation: Performing Lab:GARRETT [facility] [place] [address] Fany Carreon Notes/Report: NON-FASTING; NON-FASTING; NON-FASTING; NON-FASTING; [...] diagnosis of diabetes in children. According to [place] Diabetes Association (ADA) guidelines, hemoglobin A1c <7.0% represents optimal control in non- diabetic patients. Different metrics may apply to specific patient populations. Standards of Medical Care in Diabetes(ADA). This test was performed on the Asiya vineet c503 platform. Effective 08/16/23, a change in test platforms from the [place] Fieldwork Coordinator to the Asiya vineet c503 may have shifted HbA1c results compared to historical results. Based on laboratory validation testing conducted at [facility], the Asiya platform relative to the [place] platform had an average increase in HbA1c value of < or = 0.3%. This difference is within accepted variability established by the National Glycohemoglobin Standardization Program. Note that not all individuals will have had a shift in their results and direct comparisons between historical and current results for testing conducted on different platforms is not recommended. CBC (H/H, RBC, INDICES, WBC, PLT) (9299) Reviewed date:03/08/2024 11:46:10 AM Interpretation: Performing Lab:ZACH [facility] SolutionDioneTflmhp[address]157 [address] VsafihOV[address] Fany Carreon MD Notes/Report: NON-FASTING; NON-FASTING; NON-FASTING; [...] 173 140-400 Thousand/uL MPV 9.7 7.5-12.5 fL COMPREHENSIVE METABOLIC PANE L (53351) Reviewed date:03/08/2024 11:46:10 AM Interpretation: Performing Lab:Z[facility] Solution[facility]ioneCmyzxl72141 Matt RiveraWvjkoaDZ[address] Fany Carreon MD Notes/Report: NON-FASTING; NON-FASTING; NON-FASTING; [...] 20 10-40 U/L ALT 17 9-46 U/L IRON, TIBC AND FERRITIN PANE L (8716) Reviewed date:03/13/2024 10:55:27 AM Interpretation: Performing Lab:[facility]-Pnxzix[address], OboevkOB[address] Fany Carreon MD Notes/Report: NON-FASTING; NON-FASTING; NON-FASTING; NON-FASTING; NON-FAST FASTING:NO AN UPDATE OR CORRECTION HAS BEEN MADE TO NAME,SEX FASTING: NO IRON, TOTAL 94 50-180 mcg/dL IRON BINDING CAPACITY 323 250-425 mcg/dL (azucena c) % SATURATION 29 20-48 % (calc) FERRITIN 23 38-380 ng/mL VITAMIN D,25-OH,TOTAL,IA (17 306) Reviewed date:03/08/2024 11:46:10 AM Interpretation: Performing Lab:Z[facility] Solution[facility]ioneBwntgt94817 [address] DulcfhSK[address] Fany Carreon MD Notes/Report: NON-FASTING; NON-FASTING; NON-FASTING; [...] D, (D2,D3), LC/MS/MS is recommended: order code 15951 (patients >2yrs). See Note 1 Note 1 For additional information, please refer to http://education.InvoiceSharing/faq/YIL063 (This link is being provided for informational/ educational purposes only.) TSH (899) Reviewed date:03/08/2024 11:46:10 AM Interpretation: Performing Lab:[facility]-[id number], MmaaljHP[address] Fany Carreon MD Notes/Report: NON-FASTING; NON-FASTING; NON-FASTING; NON-FASTING; NON-FAST FASTING:NO AN UPDATE OR CORRECTION HAS BEEN MADE TO NAME,SEX FASTING: NO TSH 1.08 0.40-4.50 mIU/L Reason For Referral No Information Medications Medication [...] Status Risk Notes Problem Post-surgical malabsorption (disorder) (247079926) Postsurgical malabsorption, not elsewhere classified (K91.2) Active confirmed Problem History of gastrectomy (786509904) 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 Vital Signs Heart Rate 73 /min 01/12/2024 Temperature 97.8 degrees Fahrenheit 01/12/2024 Oximetry 98 % 01/12/2024 Blood pressure diastolic 76 mm Hg 01/12/2024 Height-cm 190.5 cm 01/12/2024 Weight-kg 92.99 kg 01/12/2024 Height 75 in 01/12/2024 Blood pressure systolic 120 mm Hg 01/12/2024 Weight 205 lbs 01/12/2024 BMI 25.62 kg/m2 01/12/2024 Encounters Encounter Location Date Provider Diagnosis [facility] [address] [place], [place] [id number] 01/12/2024 Fede Pena History of sleeve gastrectomy Z90.3 ; Postsurgical malabsorption, not elsewhere classified K91.2 ; Vitamin deficiency, unspecified E56.9 ; Other specified personal risk factors, not elsewhere classified Z91.89 ; S/P bariatric surgery Z98.84 and Acquired absence of stomach [part of] Z90.3 [facility] [address] [facility] [address] [id number] 02/09/2024 Fede Pena Vitamin deficiency, unspecified E56.9 ; Other specified personal risk factors, not elsewhere classified Z91.89 ; S/P bariatric surgery Z98.84 and Postoperative intestinal malabsorption K91.2 [facility] [address] [id number] 02/09/2024 Fede Pena Vitamin deficiency, unspecified E56.9 ; Other specified personal risk factors, not elsewhere classified Z91.89 ; S/P bariatric surgery Z98.84 and Postoperative intestinal malabsorption K91.2 [facility] [address] [id number] 02/15/2024 Fede Pena Assessments Encounter Date Diagnosis [...] FERRITIN PANEL (5616) 03/2024 COMPREHENSIVE METABOLIC PANEL (16970) COMPREHENSIVE METABOLIC PANEL (00371) CBC (H/H, RBC, INDICES, WBC, PLT) (1759) 01/12/2024 CBC (H/H, RBC, INDICES, WBC, PLT) (1759) 02/09/2024 HEMOGLOBIN A1c (496) 02/09/2024 HEMOGLOBIN A1c (496) 01/12/2024 VITAMIN B12/FOLATE, SERUM PANEL (7065) 0 01/12/2024 VITAMIN B12/FOLATE, SERUM PANEL (7065) 0 02/09/2024 TSH (899) 02/09/2024 TSH (899) 01/12/2024 VITAMIN D,25-OH,TOTAL,IA (46935) 024 VITAMIN D,25-OH,TOTAL,IA (26007) 024 ZINC (945) 01/12/2024 ZINC (945) 02/09/2024 VITAMIN B1 (THIAMINE), SERUM/PLASMA, LC/ MS/MS (27953) 02/09/2024 VITAMIN B1 (THIAMINE), SERUM/PLASMA, LC/ MS/MS (41039) 01/12/2024 Next Appt Details Provider Name:Fede hansen, 01/10/2025 01:15:00 PM, [address], [address], [id number], Insurance Providers Payer Name Payer Address Payer Phone Subscriber Number Group Number Insured Name Patient Relationship to Insured Coverage Start Date Coverage End Date [employer] [address] [place] [address] [id number] MICHAEL FUNG Self - patient is the insured Medical (General) History Medical History History ICD Code obstructive sleep apnea peptic ulcer disease Asthma Hypertension Surgical History Surgery Date(Month/Year) Lap Sleeve Gastrectomy, Dr. Pena 2020
== END 2024-12-06 08:55 | disposition home or self-care (01) ==
LOC: ANHBWCAUD 08:54
PROVIDERS: PCP Family Medicine; Visit Provider Otolaryngology
DX: H91.93 Unspecified hearing loss, bilateral (principal)
CPT/HCPCS: 92557; 92567

== ENCOUNTER 2025-04-20 16:31 | Emergency (ER) | payer OTHER, SELFPAY ==
--- OUTSIDE RECORDS SUMMARY | 2023-10-23 03:00 | XMS_ITS ---
Author Organization [facility] Address [address] [facility] [address] [place], [place] [id number] Care Team Providers Care Communications Executive Name Role Phone Fede Pena DO Unavailable [phone] Migration, Provider Unavailable Unavailable REASON FOR VISIT EMR-Brina Encounters Encounter Location Date Provider Diagnosis [facility] [address] [place], [place] [id number] 10/23/2023 Provider Migration Plan Of Treatment Next Appt Details Provider Name:Fede hansen, 01/17/2026 03:00:00 PM, [address], [address], [place], [place], [id number], Progress Notes * MICHAEL FUNGDOB:1975 (49 yo Other)Acc No.[id number]:10/23/2023 Patient: MICHAEL YOUSSEF :1975 A ge:48 Y S ex:Unknown Address:[address] [place], [address] Subjective: * Chief Complaints: * E MR-Brian * Medical History: * Surgical History: * Hospitalization/Major Diagno stic Procedure: * Medications: Objective: * Vitals: * Physical Examination: Assessment: Plan: * Treatment: * Procedure Codes: * * Date:
--- OUTSIDE RECORDS SUMMARY | 2024-01-12 03:00 | XMS_ITS ---
Author Organization [facility] Address [address] [facility] [address] [place], [place] [id number] Care Team Providers Care Gym Instructor Name Role Phone Jean DE LA CRUZ Fede Unavailable [phone] Allergies No Known Allergies REASON FOR VISIT Foaming, po 2yr10m sleeve Medications Medication SIG (Take, Route, Frequency, Duration) Notes Start Date End Date Status Vitamin B Complex - as directed Orally Active Vitamin C Active Vitamin D2 Active Multivitamin - 1 tablet Orally Once a day Active Triamcinolone Acetonide 0.5 % 1 application Externally Two times a Week Active Encounters Encounter Location Date Provider Diagnosis [facility] [address] [place], [place] [id number] 01/12/2024 Fede Pena Plan Of Treatment Next Appt Details Provider Name:Fede hansen, 01/17/2026 03:00:00 PM, [address], [address], [place], [place], [id number], Progress Notes * MICHAEL FUNGDOB:1975 (49 yo Other)Acc No.[id number]:01/12/2024 Patient: MICHAEL YOUSSEF Provider: Sidney Pena DO :1975 A ge:48 Y S ex:Unknown Date:01/12/2024 [facility] [facility] Subjective: * Chief Complaints: * 1 . Foaming, po 2yr10m sleeve. * Medical History: O bstructive sleep apnea, Peptic ulcer disease, Asthma, Hypertension. * Surgical History: L ap Sleeve Gastrectomy, Dr. Pena 03/21/2021. * Social History: M igrated Social History: M igrated Social History: Never a smoker. * Medications: T aking Vitamin B Complex - Tablet as directed Orally , Taking Vitamin C , Taking Multivitamin - Tablet 1 tablet Orally Once a day , Taking Triamcinolone Acetonide 0.5 % Cream 1 application Externally Two times a Week , Taking Vitamin D2 * Allergies: N .K.D.A. Objective: * Vitals: Assessment: Plan: * Treatment: * Billing Information: * Visit Code: * Procedure Codes: * Electronic signature of Lanre Pena DO, [id number] on 04/20/2025 at 04:36 PM RESIDENT ASSISTANT Sign off status: Pending * Provider: Sidney Pena DO Date: 0 01/12/2024 Generated for Frieda abreu/Brian/Veronica on: 06/20/2024 04:36 PM RESIDENT ASSISTANT
--- OUTSIDE RECORDS SUMMARY | 2024-01-12 07:15 | XMS_ITS ---
Author Organization [facility] Address [address] [place], [place] [address] Care Team Providers Care Denture Technician Name Role Phone Fede Pena DO Unavailable [phone] Allergies No Known Allergies REASON FOR VISIT Foaming, po 2yr10m sleeve Medications Medication SIG (Take, Route, Frequency, Duration) Notes Start Date End Date Status Vitamin D2 Active Calcium Active Multivitamin - 1 tablet Orally Once a day Active Vitamin C Active Vitamin B Complex - as directed Orally Active Triamcinolone Acetonide 0.5 % 1 application Externally Two times a Week Active Problems Problem Type SNOMED Code ICD Code Onset Dates Problem Status W/U Status Risk Notes Problem Post-surgical malabsorption (disorder) (043530146) Postsurgical malabsorption, not elsewhere classified (K91.2) Active confirmed Problem History of gastrectomy (588845570) 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 Vital Signs Temperature 97.8 degrees Fahrenheit 01/12/20 24 Blood pressure systolic 120 mm Hg 01/12/20 24 Blood pressure diastolic 76 mm Hg 024 Heart Rate 73 /min 01/12/2024 Height 75 in 01/12/2024 Weight 205 lbs 01/12/2024 BMI 25.62 kg/m2 01/12/2024 Oximetry 98 % 01/12/2024 Height-cm 190.5 cm 01/12/2024 Weight-kg 92.99 kg 01/12/2024 Encounters Encounter Location Date Provider Diagnosis [facility] [address] [place], [place] [id number] 01/12/2024 Fede Pena History of sleeve gastrectomy Z90.3 ; Postsurgical malabsorption, not elsewhere classified K91.2 ; Vitamin deficiency, unspecified E56.9 ; Other specified personal risk factors, not elsewhere classified Z91.89 ; S/P bariatric surgery Z98.84 and Acquired absence of stomach [part of] Z90.3 Assessments Encounter Date Diagnosis (ICD Code) Assessment Notes Treatment Notes Treatment Clinical Notes Section Notes 01/12/2024 History of sleeve gastrectomy (ICD-10 - Z90.3) 01/12/2024 Postsurgical malabsorption, not elsewhere classified (ICD-10 - K91.2) 01/12/2024 Vitamin deficiency, unspecified (ICD-10 - E56.9) 01/12/2024 Other specified personal risk factors, not elsewhere classified (ICD-10 - Z91.89) 01/12/2024 S/P bariatric surgery (ICD-10 - Z98.84) 01/12/2024 Acquired absence of stomach [part of] (ICD-10 - Z90.3) Plan Of Treatment Pending Test Test Name Order Date LIPID PANEL, STANDARD (7600) 01/12/2024 IRON, TIBC AND FERRITIN PANEL (5616) COMPREHENSIVE METABOLIC PANEL (54041) CBC (H/H, RBC, INDICES, WBC, PLT) (1759) 01/12/2024 HEMOGLOBIN A1c (496) 01/12/2024 VITAMIN B12/FOLATE, SERUM PANEL (7065) 0 01/12/2024 TSH (899) 01/12/2024 VITAMIN D,25-OH,TOTAL,IA (70134) 024 ZINC (945) 01/12/2024 VITAMIN B1 (THIAMINE), SERUM/PLASMA, LC/ MS/MS (95635) 01/12/2024 Next Appt Details Provider Name:Fede hansen, 01/17/2026 03:00:00 PM, [address], [address], [id number], Procedure Notes * Category Sub-Category Detail Notes Post Operative Plan Education: Emphasized e xercise and activity expectations; goal of 10,000 steps/day & 150 active min/wk. Reiterated importance of drinking at least 64 oz fluid & taking in at least 60-90g protein daily: . Patient understands the anali y postop vitamin requirements: MVI, calcium + Vit D (1,500IU), folate 100mg, and any other vitamin supplements as needed based on laboratory monitoring. Reviewed appropriate eating habits and food choices: . Reminded patient that surger y is not a magic fix for weight loss: it is hard work and requires many behavioral changes to be successful. Encouraged patient follow with their PCP regularly, especially regarding medication changes: ; to see a counselor if mental health concerns arise; and continue to follow-up with bariatric composition professor. There are no barriers to education today: . DISPOSITION: Return in: 6 months for follo w-up visit. Patient also instructed to h ave repeat labs drawn prior to next postop follow-up visit; orders placed: CBC w/diff, CMP, Vit B1, Folate, Vit B12, iron/TIBC, lipid panel, 25-Hydroxy, HbA1C, zinc. The patient is encouraged to call the clinic with any questions or concerns in the meantime. The patient demonstrates understanding and is amendable to the above outlined plan: . Progress Notes * MICHAEL FUNGDOB:1975 (49 yo Other)Acc No.[id number]:01/12/2024 Patient: MICHAEL YOUSSEF Provider: Sidney Pena DO :1975 A ge:48 Y S ex:Unknown Date:01/12/2024 Address: [address], [facility] Subjective: * Chief Complaints: * 1 . Foaming, po 2yr10m sleeve. 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 Since our last follow up he had bariatric labs drawn. > INTERVAL ISSUES/CONCERNS: n ausea,diarrhea,constipation,bloating/hiccups/increased belching P atient h as not been admitted to the hospital H as patient undergone any post-bariatric surgical operations or interventions? N o . P re-surgical Weight: 3 44 lb L ast Visit Weight: 2 13 lb T CEM'S WEIGHT: 2 05 lb T otal Weight Loss (TBW): 1 39 lb % TBW Lost: 4 0.4 > Daily fluid/water intake = 4 0-60 ounces > Protein Intake is a dequate > Physical Activity: E xercising 1-3x/week a nd walking 6 ,000 -10,000 steps/day COMORBIDITY EVALUATION : ELISEO Yes - no longer requiring CPAP at night . GERD No . Hypertension Yes , - o ff BP medications Hyperlipidemia No , Diabetes Yes , VTE Yes , Is Patient attending any support groups E ncouraged attendance . * ROS: G eneral / Constitutional: Chills d enies. F ever d enies. A llergy / Immunology: Blistering skin d enies. H EENT: Difficulty in swallowing d enies. N kimmy congestion?denies. E ndocrine: Cold intolerance d enies. E xcessive thirst d enies. R espiratory: Chest pain d enies. C ough d enies. ? C ardiovascular: Chest pain d enies. P alpitations d enies. W eakness d enies. G astrointestinal: Abdominal pain d enies. D iarrhea d enies. J aundice d enies. R ectal bleeding d enies. G enitourinary: Blood in the urine d enies. D ifficulty urinating d enies. M usculoskeletal: Limping gait d enies. W eakness d enies. B urning pain in lower legs d enies. P sychiatric: Auditory / visual hallucinations d enies. S ubstance abuse d enies. S uicidal thoughts d enies. R eview of Systems: Fever/Chills: N o. E levated HR: N o. B loating/hiccups: N o. S OB/cough/wheezing: N o. L ower extremity pain or swelling: N o.?Decreased UOP: N o. B owel function N ormal BMs without complaint. ? * Medical History: O bstructive sleep apnea, Peptic ulcer disease, Asthma, Hypertension. * Surgical History: L ap Sleeve Gastrectomy, Dr. Pena 03/21/2021. * Social History: M igrated Social History: M igrated Social History: Never a smoker. * Medications: T aking Calcium , Taking Vitamin B Complex - Tablet as directed Orally , Taking Vitamin C , Taking Multivitamin - Tablet 1 tablet Orally Once a day , Taking Triamcinolone Acetonide 0.5 % Cream 1 application Externally Two times a Week , Taking Vitamin D2 , Medication List reviewed and reconciled with the patient * Allergies: N .K.D.A. Objective: * Vitals: W t:205, Ht: 75, HT: 6'3, BMI:25.62, Oxygen sat %:98, HR:73, BP:120/76, Temp:97.8, Wt-k.99, Ht-cm: 190.5, Body Surface Area: 2.22. * Examination: P hysical Exam: General: W ell-developed a dult in no acute distress Head: A traumatic, normocephalic . Neck: S upple, trachea midline. No cervical lymphadenopathy . Chest: Unlabored breathing without respiratory distress Heart: Normal rate and regular rhythm Abdomen: Soft, non-tender, Bowel sounds normal, No masses, no organomegaly Extremities: Warm and well perfused R eviewed any recent labs with patient at visit today . Psych G ood insight, good judgement, appropriate affect . Integumentary: W arm and dry . Assessment: * Assessment: 1. H istory of sleeve gastrectomy - Z90.3 (Primary) 2 . V itamin deficiency, unspecified - E56.9 3 . P ostsurgical malabsorption, not elsewhere classified - K91.2 4 . O ther specified personal risk factors, not elsewhere classified - Z91.89 5 . S /P bariatric surgery - Z98.84 6 . A cquired absence of stomach [part of] - Z90.3 Plan: * Treatment: 2. V itamin deficiency, unspecified L AB: LIPID PANEL, STANDARD (7600) L AB: IRON, TIBC AND FERRITIN PANEL (5616) L AB: COMPREHENSIVE METABOLIC PANEL (21093) L AB: CBC (H/H, RBC, INDICES, WBC, PLT) (1759) L AB: HEMOGLOBIN A1c (496) L AB: VITAMIN B12/FOLATE, SERUM PANEL (7065) L AB: TSH (899) L AB: VITAMIN D,25-OH,TOTAL,IA (06514) L AB: ZINC (945) L AB: VITAMIN B1 (THIAMINE), SERUM/PLASMA, LC/MS/MS (20157) 3. P ostsurgical malabsorption, not elsewhere classified L AB: LIPID PANEL, STANDARD (7600) L AB: IRON, TIBC AND FERRITIN PANEL (5616) L AB: COMPREHENSIVE METABOLIC PANEL (23978) L AB: CBC (H/H, RBC, INDICES, WBC, PLT) (1759) L AB: HEMOGLOBIN A1c (496) L AB: VITAMIN B12/FOLATE, SERUM PANEL (7065) L AB: TSH (899) L AB: VITAMIN D,25-OH,TOTAL,IA (76150) L AB: ZINC (945) L AB: VITAMIN B1 (THIAMINE), SERUM/PLASMA, LC/MS/MS (66794) 4. O ther specified personal risk factors, not elsewhere classified L AB: LIPID PANEL, STANDARD (7600) L AB: IRON, TIBC AND FERRITIN PANEL (5616) L AB: COMPREHENSIVE METABOLIC PANEL (29080) L AB: CBC (H/H, RBC, INDICES, WBC, PLT) (1759) L AB: HEMOGLOBIN A1c (496) L AB: VITAMIN B12/FOLATE, SERUM PANEL (7065) L AB: TSH (899) L AB: VITAMIN D,25-OH,TOTAL,IA (32940) L AB: ZINC (945) L AB: VITAMIN B1 (THIAMINE), SERUM/PLASMA, LC/MS/MS (86826) 5. S /P bariatric surgery L AB: LIPID PANEL, STANDARD (7600) L AB: IRON, TIBC AND FERRITIN PANEL (5616) L AB: COMPREHENSIVE METABOLIC PANEL (18119) L AB: CBC (H/H, RBC, INDICES, WBC, PLT) (1759) L AB: HEMOGLOBIN A1c (496) L AB: VITAMIN B12/FOLATE, SERUM PANEL (7065) L AB: TSH (899) L AB: VITAMIN D,25-OH,TOTAL,IA (11835) L AB: ZINC (945) L AB: VITAMIN B1 (THIAMINE), SERUM/PLASMA, LC/MS/MS (21722) * Procedures: P ost Operative Plan: Education: E mphasized exercise and activity expectations; goal of 10,000 steps/day & 150 active min/wk. Reiterated importance of drinking at least 64 oz fluid & taking in at least 60-90g protein daily . P atient understands the daily postop vitamin requirements: MVI, calcium + Vit D (1,500IU), folate 100mg, and any other vitamin supplements as needed based on laboratory monitoring. Reviewed appropriate eating habits and food choices . R eminded patient that surgery is not a magic fix for weight loss: it is hard work and requires many behavioral changes to be successful. Encouraged patient follow with their PCP regularly, especially regarding medication changes ; t o see a counselor if mental health concerns arise; and continue to follow-up with bariatric composition professor. There are no barriers to education today . DISPOSITION: R eturn in 6 months for follow-up visit. P timo also instructed to have repeat labs drawn prior to next postop follow-up visit; orders placed: CBC w/diff, CMP, Vit B1, Folate, Vit B12, iron/TIBC, lipid panel, 25-Hydroxy, HbA1C, zinc. The patient is encouraged to call the clinic with any questions or concerns in the meantime. The patient demonstrates understanding and is amendable to the above outlined plan . * Billing Information: * Visit Code: * Procedure Codes: * Electronic signature of Lanre Pena DO, [id number] on 04/20/2025 at 04:36 PM CASING MATERIAL WEIGHER Sign off status: Pending * Provider: Sidney Pena DO Date: 0 01/12/2024 Generated for Frieda abreu/Brian/Chrisitting on: 1 06/20/2024 04:36 PM CASING MATERIAL WEIGHER History and Physical Notes * HPI (History of Present Illness) Category Sub-Category Detail Notes Category Not es History of Present Illness Visit: Time since surgery:: 2 Years 10 Months Surgical Procedure:: Sleeve Gastrectomy Date of Surgery:: 03/21/2021 Interval History: The patient is a: male present ing for bariatric postoperative follow-up. Since our last follow up he had bariatric labs d rawn. > INTERVAL ISSUES/CONCERNS:: nausea,diarrhea,constipation,bloating/hiccups/increased belching Patient: has not been admitted to the hospital Has patient undergone any po st-bariatric surgical operations or interventions?: No . Pre-surgical Weight:: 344 lb Last Visit Weight:: 213 lb TODAY'S WEIGHT:: 205 lb Total Weight Loss (TBW):: 139 lb %TBW Lost:: 40.4 > Daily fluid/water intake =: 40-60 ounc es > Protein Intake is: adequate > Physical Activity:: Exercising 1-3x/we ek and walkin,000 -10,000 steps/day COMORBIDITY EVALUATION : ELISEO Yes - no longer requiring CPAP a t night . GERD No . Hypertension Yes , -: off BP medications Hyperlipidemia No , Diabetes Yes , VTE Yes , Is Patient attending any support groups Encour ed attendance: . Examination Category Sub-Category Detail Notes Category Not es Physical Exam General: Well-developed: adult in no acute distress Chest: Unlabored breath ing without respiratory distress Abdomen: Soft, non-tender, Ulises wel sounds normal, No masses, no organomegaly Extremities: Warm and well perfused Reviewed any recent labs with patient at visit today: . Heart: Normal rate and regular rhythm Psych Good insight, good judgement, ap propriate affect: . Integumentary: Warm and dry: . Head: Atraumatic, normocephalic: . Neck: Supple, trachea midline. No cerv ical lymphadenopathy: .
[2025-04-20 16:36] VITALS: BP 149/92; PULSE 79; RESP 14; TEMP 37.3; O2SAT 99
--- OUTSIDE RECORDS SUMMARY | 2025-04-20 16:36 | XMS_ITS | Clinical Summary ---
Author Organization [facility] Address [address] [place] [address] Phone Care Team Providers Care Compounder Sterile Products Name Role Phone Unavailable Primary Care Provider [...] 05/29/2021 Immunizations Immunization Administration Dates Next Due (Beyond Verbal)(12 YR UP) COVID-19 VACCINE - EMERGENCY USE AUTHORIZATION, MRNA, [id number]) 30 MCG/0.3 ML IM SUSP 09/04/2020,08/16/2020 Social [...] Q 5 years 2022 INFLUENZA VACCINE (#1) 2024 03/31/2021 COVID-19 Vaccine ( season) 01/29/202511/2020, 08/16/2020 Medical Devices Implanted Type Area Director Client Services Device Identifier Shelf Expiration Date Model / Serial / Lot Hemostat Surg Snow 2x4in 2082 - [id number] Implanted:Qt y: 1 on 03/21/2021 by Fede Pena DO at [facility] Hemostatic N/A: Abdomen [employer] [id number] 11/27/2022 2082 / / [id number] Insurance BS BLUE ACCESS CHOICE RX PRIME THERAPEUTICS Commercial RX [employer] PLANS (INTERNAL) [facility] Internal Plans Advance Directives For more information, please contact: [phone] * Full Code (Latest Code Status on File) Date Activated Date Inactivated Comments 03/21/2021 5:56 PM 03/22/2021 8:39 PM * Full Code Date Activated Date Inactivated Comments 03/21/2021 1:59 PM 03/21/2021 5:56 PM * Full Code Date Activated Date Inactivated Comments 03/21/2021 11:44 AM 03/21/2021 1:59 PM
--- OUTSIDE RECORDS SUMMARY | 2025-04-20 16:36 | XMS_ITS | Clinical Summary ---
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
--- OUTSIDE RECORDS SUMMARY | 2025-04-20 16:36 | XMS_ITS | Patient Health Record ---
Author Organization [facility] Address [address] [place], [place] [id number] Care Team Providers Care Career Development Consultant Name Role Phone Pena Fede Unavailable [phone] Allergies No Known Allergies Reason For Referral No Information Medications Medication SIG (Take, Route, Frequency, Duration) Notes Start Date End Date Status Calcium Unknown Vitamin B Complex - as directed Orally Unknown Triamcinolone Acetonide 0.5 % 1 application Externally Two times a Week Unknown Vitamin D2 Unknown Vitamin C Unknown Multivitamin - 1 tablet Orally Once a day Unknown Problems Problem Type SNOMED Code ICD Code Onset Dates Problem Status W/U Status Risk Notes Problem Information temporarily unavailable Postsurgical malabsorption, not elsewhere classified (K91.2) Active confirmed Problem Information temporarily unavailable 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 Vital Signs Heart Rate 71 /min 01/18/2025 Temperature 97.8 degrees Fahrenheit 01/18/2025 Height-cm 190.5 cm 01/18/2025 Oximetry 99 % 01/18/2025 Blood pressure diastolic 83 mm Hg 01/18/2025 Weight-kg 102.06 kg 01/18/2025 Height 75 in 01/18/2025 Blood pressure systolic 132 mm Hg 01/18/2025 Weight 225 lbs 01/18/2025 BMI 28.12 kg/m2 01/18/2025 Encounters Encounter Location Date Provider Diagnosis [facility] [address] [place], [place] [id number] 01/18/2025 Fede Pena Vitamin deficiency, unspecified E56.9 ; Postsurgical malabsorption, not elsewhere classified K91.2 ; Other specified personal risk factors, not elsewhere classified Z91.89 and S/P bariatric surgery Z98.84 Assessments Encounter Date Diagnosis (ICD Code) Assessment Notes Treatment Notes Treatment Clinical Notes Section Notes 01/18/2025 Vitamin deficiency, unspecified (ICD-10 - E56.9) 01/18/2025 Postsurgical malabsorption, not elsewhere classified (ICD-10 - K91.2) 01/18/2025 Other specified personal risk factors, not elsewhere classified (ICD-10 - Z91.89) 01/18/2025 S/P bariatric surgery (ICD-10 - Z98.84) Plan Of Treatment Pending Test Test Name Order Date LIPID PANEL, STANDARD (7600) 01/12/2024 LIPID PANEL, STANDARD (7600) 01/18/2025 IRON, TIBC AND FERRITIN PANEL (5616) IRON, TIBC AND FERRITIN PANEL (5616) IRON, TIBC AND FERRITIN PANEL (5616) 03/2024 COMPREHENSIVE METABOLIC PANEL (87437) COMPREHENSIVE METABOLIC PANEL (51718) COMPREHENSIVE METABOLIC PANEL (36084) CBC (H/H, RBC, INDICES, WBC, PLT) (1759) 01/12/2024 CBC (H/H, RBC, INDICES, WBC, PLT) (1759) 01/18/2025 CBC (H/H, RBC, INDICES, WBC, PLT) (1759) 02/09/2024 HEMOGLOBIN A1c (496) 02/09/2024 HEMOGLOBIN A1c (496) 01/12/2024 HEMOGLOBIN A1c (496) 01/18/2025 VITAMIN B12/FOLATE, SERUM PANEL (7065) 0 01/18/2025 VITAMIN B12/FOLATE, SERUM PANEL (7065) 0 01/12/2024 VITAMIN B12/FOLATE, SERUM PANEL (7065) 0 02/09/2024 TSH (899) 01/18/2025 TSH (899) 02/09/2024 TSH (899) 01/12/2024 VITAMIN D,25-OH,TOTAL,IA (62191) 025 VITAMIN D,25-OH,TOTAL,IA (17460) 024 VITAMIN D,25-OH,TOTAL,IA (61802) 024 ZINC (945) 02/09/2024 ZINC (945) 01/12/2024 ZINC (945) 01/18/2025 VITAMIN B1 (THIAMINE), SERUM/PLASMA, LC/ MS/MS (30272) 01/18/2025 VITAMIN B1 (THIAMINE), SERUM/PLASMA, LC/ MS/MS (51765) 01/12/2024 VITAMIN B1 (THIAMINE), SERUM/PLASMA, LC/ MS/MS (43873) 02/09/2024 Next Appt Details Provider Name:Fede hansen, 01/17/2026 03:00:00 PM, [address], [address], [place], [place], [id number], Insurance Providers Payer Name Payer Address Payer Phone Subscriber Number Group Number Insured Name Patient Relationship to Insured Coverage Start Date Coverage End Date [employer] [address] [place] [address] [id number] MICHAEL FUNG Self - patient is the insured Medical (General) History Medical History History ICD Code obstructive sleep apnea peptic ulcer disease Asthma Hypertension Surgical History Surgery Date(Month/Year) Lap Sleeve Gastrectomy, Dr. Pena 2020
--- NOTE | 2025-04-20 16:48 | ED.URI ---
HPI - URI/Sore Throat General Chief Complaint: Upper Respiratory Infection Stated Complaint: cough/headache Time Seen by Provider: 04/20/25 16:48 Source: patient and RN notes reviewed Mode of arrival: ambulatory Limitations: no limitations History of Present Illness HPI Narrative: 49-year-old male presents with concern for 4 days history of cough. He reports headache, fatigue, general malaise. Reports cough is keeping him awake at night. He has taken [id number] medications without relief. Reports coworkers also have a cough. MD elicited complaint: cough Related Data Home Medications ?Medication ?Instructions ?Recorded ?Confirmed ?Last Taken ?Type multivitamin 1 tablet PO DAILY 04/09/21 12/25/24 Unknown History ascorbic acid (vitamin C) 1,000 mg 1 g PO DAILY 10/01/21 12/25/24 Unknown History tablet calcium carbonate (Calcium 600) 1,200 mg PO DAILY 10/01/21 12/25/24 Unknown History vitamin B complex (B 1 tablet PO DAILY 10/01/21 12/25/24 Unknown History Complex-Vitamin B12 tablet) Magnesium Glycinate & Organic Sea 350 mg PO 11/13/24 12/25/24 Unknown History Schultz cholecalciferol (vitamin D3) 25 25 mcg PO DAILY 11/13/24 12/25/24 Unknown History mcg (1,000 unit) capsule docusate sodium 100 mg tablet 100 mg PO DAILY 11/13/24 12/25/24 Unknown History (Stool Softener) magnesium oxide 400 mg PO DAILY 11/13/24 12/25/24 Unknown History zinc 100 mg tablet 100 mg PO DAILY 11/13/24 12/25/24 Unknown History Allergies Allergy/AdvReac Type Severity Reaction Status Date / Time No Known Allergies Allergy Mild Verified 04/20/25 16:33 Review of Systems Review of Systems: CONSTITUTIONAL: Reports malaise. Denies fever. EYES: Denies visual changes, redness, or discharge. ENT: Reports mild rhinorrhea, congestion, sinus pain. Denies otalgia and sore throat. CARDIOVASCULAR: Denies chest pain, palpitations, or edema. RESPIRATORY: Reports cough. Denies dyspnea. GASTROINTESTINAL: Denies abdominal pain, nausea, vomiting, diarrhea SKIN: Denies rash or itching. MUSCULOSKELETAL: Denies myalgia. NEUROLOGIC: Reports headache. All systems reviewed & are unremarkable except as noted in HPI and below PMFSH Past Medical History Medical History Hiatal hernia (~04/2023) 05/22 EGD, asymptomatic Tinea versicolor Dyslipidemia Essential (primary) hypertension resolved after bariatric surgery( sleeve gastrectomy) and weight loss Family history of prostate cancer Surgical History Surgical History History of sleeve gastrectomy (~02/2021) 03/21/21 H/O hernia repair (~1977) congenital inguinal hernia Social History Social History Smoking status: Never smoker Second hand tobacco smoke exposure: No Alcohol intake: current Alcohol use details: 1 drink monthly Substance use: never Substance use type: does not use Lack of Transportation: No Lack of Food: Never True Current Housing: I Have Housing Concerned About Future Housing: No Difficulty Paying Gas/Electric Bills: No Difficulty Paying for Meds: No Currently Unemployed: No Education: Associate Degree Difficulty w/ Childcare or Family Care: No Living arrangements: with family Occupation/Education: occupation Gender identity (if verbalized by the patient): Male Spiritual care concerns: No Agree to blood products: Yes Comments At time of signature, agree with nursing past medical, surgical, social and family history. There is no relevant family history pertinent to the presenting complaint Exam Narrative: GENERAL: Well-appearing, well-nourished, and in no acute distress. HEAD: Normocephalic EYES: PERRLA, conjunctivae clear ENT: Nares clear. Mucous membranes moist. TM pearly dove with sharp light reflex bilaterally; no tragal tenderness. Oropharynx not erythematous without lesions. Tonsils not enlarged and without exudate, no drooling, no hoarseness, no trismus, uvula midline. NECK: Supple. No lymphadenopathy CHEST: Clear to auscultation, breath sounds equal. No wheezing, rhonchi, rales, or stridor. No respiratory distress, speaks in full sentences. Cough noted HEART: Regular rate and rhythm. No murmur heard. SKIN: Warm, dry, no rash. NEURO: Alert and oriented x3. PSYCH: Normal mood and affect Course Course Emergency Course: Patient is aware of diagnosis, understands and agrees to treatment plan. Anticipatory guidance given. Patient agrees to follow-up as directed and is aware of reasons to seek care at the emergency department. Portions of this record may have been created with voice recognition software Level of Care: Express Care Visit Vital Signs Vital signs: Vital Signs Temperature 99.1 F 04/20/25 16:36 Pulse Rate 79 04/20/25 16:36 Respiratory Rate 14 04/20/25 16:36 Blood Pressure 149/92 H 04/20/25 16:36 Pulse Oximetry 99 04/20/25 16:36 Oxygen Delivery Room Air 04/20/25 16:36 Temperature 99.1 F 04/20/25 16:36 Pulse Rate 79 04/20/25 16:36 Respiratory Rate 14 04/20/25 16:36 Blood Pressure 149/92 H 04/20/25 16:36 Pulse Oximetry 99 04/20/25 16:36 Oxygen Delivery Room Air 04/20/25 16:36 Reviewed. MDM - URI/Sore Throat MDM Narrative Medical decision making narrative: Differential diagnosis considered: Johnston virus, strep pharyngitis, allergic rhinitis, upper respiratory tract infection, sinusitis, rhinosinusitis, nasopharyngitis. viral pharyngitis, otitis media, otitis externa, pneumonia, bronchitis, viral cough syndrome, viral syndrome, and influenza. Exam findings show no acute concerns or changes; patient is non-toxic appearing and is in no distress. Patient is appropriate for outpatient treatment and follow-up. Lab Data Attestation: I reviewed the patient's lab results. Critical Care Time Critical Care Time Critical Care Time: No Discharge Plan Discharge Clinical Impression: Bronchitis, Upper respiratory infection Patient Disposition: Home Condition: Stable Instructions: Acute Bronchitis (ED) Additional Instructions: Viral illness may last between 7-21 days; antibiotics do not cure viral illness and are NOT recommended at this time. Recommend antihistamine such as Benadryl at night time and Zyrtec or Leslie during the day Cough syrup may cause drowsiness; avoid driving or take it at night time. Also, recommend symptomatic treatment includes: rest, fluids, and increase humidity of the air at home. Recommend Acetaminophen as directed on the bottle to reduce fever, pain, headache. Avoid smoking/second-hand smoke. Please schedule a follow-up visit with your personal physician for further evaluation and treatment within 3-5days. Including recheck and discussion of your blood pressure. If your symptoms persist, change or worsen significantly before you can contact your personal physician then please, without delay, go to the emergency department for further evaluation. Patient Language: Moldovan Prescriptions: New prednisone 20 mg tablet 40 mg PO DAILY 5 Days Qty: 10 0RF codeine-guaifenesin [Virtussin AC] 10-100 mg/5 mL liquid 5 ml PO Q6H PRN (Reason: cough) Qty: 120 0RF No Action multivitamin Tablet 1 tablet PO DAILY vitamin B complex [B Complex-Vitamin B12] Tablet 1 tablet PO DAILY calcium carbonate [Calcium 600] 600 mg calcium (1,500 mg) tablet 1,200 mg PO DAILY ascorbic acid (vitamin C) 1,000 mg tablet 1 g PO DAILY zinc 100 mg tablet 100 mg PO DAILY magnesium oxide 400 mg magnesium tablet 400 mg PO DAILY cholecalciferol (vitamin D3) 25 mcg (1,000 unit) capsule 25 mcg PO DAILY Magnesium Glycinate & Organic Sea Schultz 350 mg PO docusate sodium [Stool Softener] 100 mg tablet 100 mg PO DAILY ofloxacin 0.3 % drops 4 drp otic (ear) . daily Qty: 10 2RF Rx Instructions: put 4 drops in each ear q.a.m. with ear up towards the ceiling for 20 seconds afterwards betamethasone valerate 0.1 % cream 1 applic topical . q.h.s. PRN (Reason: external otitis) Qty: 15 1RF Rx Instructions: applied external ear canal with Q Q-tip or with index finger q.h.s. fluconazole 100 mg tablet 100 mg PO WEEKLY PRN (Reason: tinea versicolor) Qty: 4 0RF Follow-up/Referrals: Vinicio Garcia MD [Primary Care Provider, Family Practice] Time of Disposition: 16:57
== END 2025-04-20 17:01 | disposition home or self-care (01) ==
PROVIDERS: Emergency Provider Nurse Practitioner; PCP Family Medicine
DX: J40 Bronchitis, not specified as acute or chronic (principal); J06.9 Acute upper respiratory infection, unspecified; E78.5 Hyperlipidemia, unspecified; Z98.84 Bariatric surgery status
CPT/HCPCS: 99213; G0463